=== PATIENT | female | born 2000 | race Caucasian/White ===

== ENCOUNTER 2021-01-15 20:43 | Emergency (ER) | payer MEDICAID, SELFPAY ==
--- NOTE | ~2021-01-15 | CT_ITS ---
EXAMINATION: CT ABDOMEN AND PELVIS WITHOUT CONTRAST CLINICAL INFORMATION: Left pelvic and flank pain COMPARISON: 11/08/2018 TECHNIQUE: Multidetector volumetric imaging was performed from the superior aspect of the liver through the pubic symphysis. Sagittal and coronal reformatted images were obtained on the technologist's workstation. This CT examination was performed using dose optimization techniques as appropriate, variously including the following: *Automated exposure control *Adjustment of mA and/or kV according to patient size (this includes techniques or standardized protocols for targeted exams where dose is matched to indication/reason for exam; i.e. extremities or head) *Use of iterative reconstruction technique DLP: 669 mGy-cm FINDINGS: LUNG BASES: Clear LIVER, GALLBLADDER, AND BILIARY TREE: The liver is normal in size, shape, and attenuation. No focal hepatic lesion or biliary ductal dilatation is present. Gallbladder unremarkable. PANCREAS: Unremarkable. SPLEEN: Unremarkable. ADRENAL GLANDS: Unremarkable. KIDNEYS AND URETERS: The kidneys are normal in size, shape, and attenuation. No hydronephrosis, hydroureter, or calculi seen. No perinephric stranding. BLADDER: Unremarkable. GASTROINTESTINAL TRACT: Scattered colonic diverticula. No evidence of diverticulitis. Normal appendix. Stomach and small bowel unremarkable. ABDOMINAL WALL: No significant hernia is appreciated. LYMPH NODES: Normal. VASCULAR: Unremarkable. PELVIC VISCERA: Uterus and adnexa unremarkable. OSSEOUS STRUCTURES: No acute or suspicious osseous abnormalities. CT/CT abdomen pelvis wo con IMPRESSION: No acute findings within the abdomen or pelvis to explain the patient's symptomatology. Scattered colonic diverticula without evidence of diverticulitis.
[2021-01-15 20:58] VITALS: BP 131/75; PULSE 100; RESP 18; TEMP 36.4; O2SAT 99; BMI 35.4
--- NOTE | 2021-01-15 22:23 | ED_ITS ---
HPI - General Adult General Chief complaint: General Medical Stated complaint: left sided pain Time Seen by Provider: 01/15/21 22:20 Source: patient Mode of arrival: ambulatory Limitations: no limitations History of Present Illness HPI narrative: 20 y/o female presenting with intermittent left sided flank pain and pelvic pain for the last 4 days. She states the pain starts in in between her left lower ribs and radiates toward her LLQ and left pelvic area. She currently had none. She reports increased urinary frequency and urgency but no dysuria or hematuria. She has no N/V/D, fever or chills. No vaginal bleeding or discharge. LMP 12/21. MD complaint: left flank and pelvic pain Onset (ago): day(s) (4) Location: abdomen Radiation: flank Severity: mild Severity scale (1-10): 4 Pain Consistency: intermittent Relieving factors: none Exacerbating factors: none Associated symptoms: denies other symptoms Treatments prior to arrival: none Related Data Previous Rx's Medication Instructions Recorded cefuroxime axetil 250 mg PO BID #6 tab 01/16/21 Allergies Allergy/AdvReac Type Severity Reaction Status Date / Time No Known Allergies Allergy Unverified 04/14/20 19:22 [No Known Allergies*] Review of Systems Review of Systems: Constitutional: No Fever, No Chills ENT/Mouth: No sore throat, No Rhinorrhea, No Swallowing Difficulty Cardiovascular: No Chest Pain, No SOB, No Orthopnea, No Edema Respiratory: No Cough, No Sputum, No Wheezing, No dyspnea Gastrointestinal: No Nausea, No Vomiting, No Diarrhea, + abdominal Pain, No Hematochezia, No Melena Genitourinary: No Dysuria, + Urinary Frequency, No Hematuria Musculoskeletal: No joint pain, No Myalgias Skin: No Skin Lesions, No rash Neuro: No Weakness, No Numbness, No Dizziness, No Headache Psych: No Anxiety/Panic, No Depression Heme/Lymph: No Bruising, No Lymphadenopathy Endocrine: No Polyuria, No Polydipsia PMFSH Past Medical History Attestation statement: The following information was validated with the patient. Medical History Asthma No acute medical problems Surgical History (Updated 01/15/21 @ 21:03 by Ruth Malone) No history of previous surgery Social History Social History Advance Directives: No Advance Directives Information Provided: No Patient : Yes Physical Exam Vital Signs: Vital Signs: Last Vital Signs Temp 97.6 F 01/15/21 20:58 Pulse 100 01/15/21 20:58 Resp 18 01/15/21 20:58 BP 131/75 01/15/21 20:58 Pulse Ox 99 01/15/21 20:58 Body Mass Index 35.4 Appearance: Alert. Oriented X3. No acute distress. Eyes: Pupils equal, round and reactive to light. ENT: Pharynx normal. Neck: Normal inspection. Neck supple. CVS: Normal heart rate and rhythm. Pulses normal. Respiratory: No respiratory distress. Breath sounds normal. Abdomen: Soft and with mild LLQ tenderness to deep palpation. +BS x4 Skin: Skin warm and dry. Normal skin color. Normal skin turgor. No rashes. Extremities: No lower extremity edema. Neuro: Oriented X 3. No motor deficit. No sensory deficit. Course Course Course Narrative: 20 y/o female presenting with left flank and pelvic pain x4 days along with urgency and frequency. No concern for STI's. Pelvic exam deferred. Will get labs and urine for further assessment. Reevaluation(s) Reevaluation #1: Labs unremarkable. UA weakly positive for infection. CT scan ordered. Reevaluation #2: CT showed no acute abnormalities to cause patient's pain. Given her urinary symptoms, will treat her for UTI. No fever, N/V or leukocytosis. She is stable for d/c with outpatient follow up. Medical Decision Making Lab Data Result diagrams: 01/15/21 22:35 01/15/21 22:35 Labs: Lab Results 01/15/21 01/15/21 01/15/21 Range/Units 22:35 22:35 22:35 WBC 10.7 (4.8-10.8) X10*3/uL RBC 3.84 L (4.20-5.50) X10*6/uL Hgb 12.3 (12.0-16.0) g/dl Hct 36.2 L (37-47) % MCV 94.3 (80-98) fL MCH 32.0 (27.0-33.0) pg MCHC 34.0 (31.0-35.0) g/dl RDW 12.0 (11.0-16.0) % Plt Count 214 (160-400) X10*3/uL MPV 11.5 (9.4-12.3) fL Immature Gran % (Auto) 0.3 (0.0-0.4) % Neut % (Auto) 51.6 (45-73) % Lymph % (Auto) 39.4 (20-40) % [place] % (Auto) 7.1 (2-11) % Eos % (Auto) 1.4 (0-4) % Baso % (Auto) 0.2 (0-2) % Lymph # (Auto) 4.2 (1.2-4.9) X10*3/uL [place] # (Auto) 0.8 (0.1-1.2) X10*3/uL Eos # (Auto) 0.2 (0.0-0.4) X10*3/uL Baso # (Auto) 0.0 (0.0-0.2) X10*3/uL Abs Immat Gran (auto) 0.03 (0.00-0.03) X10*3/uL Absolute Neuts (auto) 5.5 (2.0-8.3) X10*3/uL Absolute Nucleated RBC 0.000 (0.0-0.012) X10*3/uL Nucleated RBC % (auto) 0.0 (0.0-0.2) /100WBC Sodium 140 (135-145) mmol/L Potassium 4.0 (3.3-5.1) mmol/L Chloride 105 (96-108) mmol/L Carbon Dioxide 26 (22-29) mmol/L Anion Gap 13 (12-20) BUN 15 (9-16) mg/dL Creatinine 0.68 (0.5-1.4) mg/dL Estim Creat Clear Calc 139.9 Estimated GFR > 60 Random Glucose 87 (60-115) mg/dL Calcium 9.8 (8.4-10.2) mg/dL Total Bilirubin 0.5 (0.0-1.0) mg/dL Direct Bilirubin 0.2 (0.0-0.5) mg/dL AST 14 (5-31) U/L ALT 11 (0-31) U/L Alkaline Phosphatase 93 (39-117) U/L Total Protein 7.0 (6.5-8.0) g/dL Albumin 4.3 (3.5-5.0) g/dL Beta HCG, Quant < 2 mIU/mL Urine Color YELLOW Urine Appearance CLEAR Urine pH 6.0 (5.0-8.0) Ur Specific Crawford 1.025 (1.005-1.025) Urine Protein NEG (NEG-TRACE) MG/DL Urine Glucose (UA) NEG (NEG) MG/DL Urine Ketones NEG (NEG) MG/DL Urine Blood NEG (NEG) Urine Nitrite NEG (NEG) Ur Leukocyte Esterase TRACE H (NEG) Urine RBC 0 (0) /HPF Urine WBC 1-4 (0-4) /HPF Ur Squamous Epith Cells 1+ /LPF Calcium Oxalate Crystal 1+ /LPF Urine Bacteria 1+ /LPF Urine Test (NEGATIVE) 01/15/21 Range/Units 22:35 WBC (4.8-10.8) X10*3/uL RBC (4.20-5.50) X10*6/uL Hgb (12.0-16.0) g/dl Hct (37-47) % MCV (80-98) fL MCH (27.0-33.0) pg MCHC (31.0-35.0) g/dl RDW (11.0-16.0) % Plt Count (160-400) X10*3/uL MPV (9.4-12.3) fL Immature Gran % (Auto) (0.0-0.4) % Neut % (Auto) (45-73) % Lymph % (Auto) (20-40) % [place] % (Auto) (2-11) % Eos % (Auto) (0-4) % Baso % (Auto) (0-2) % Lymph # (Auto) (1.2-4.9) X10*3/uL [place] # (Auto) (0.1-1.2) X10*3/uL Eos # (Auto) (0.0-0.4) X10*3/uL Baso # (Auto) (0.0-0.2) X10*3/uL Abs Immat Gran (auto) (0.00-0.03) X10*3/uL Absolute Neuts (auto) (2.0-8.3) X10*3/uL Absolute Nucleated RBC (0.0-0.012) X10*3/uL Nucleated RBC % (auto) (0.0-0.2) /100WBC Sodium (135-145) mmol/L Potassium (3.3-5.1) mmol/L Chloride (96-108) mmol/L Carbon Dioxide (22-29) mmol/L Anion Gap (12-20) BUN (9-16) mg/dL Creatinine (0.5-1.4) mg/dL Estim Creat Clear Calc Estimated GFR Random Glucose (60-115) mg/dL Calcium (8.4-10.2) mg/dL Total Bilirubin (0.0-1.0) mg/dL Direct Bilirubin (0.0-0.5) mg/dL AST (5-31) U/L ALT (0-31) U/L Alkaline Phosphatase (39-117) U/L Total Protein (6.5-8.0) g/dL Albumin (3.5-5.0) g/dL Beta HCG, Quant mIU/mL Urine Color Urine Appearance Urine pH (5.0-8.0) Ur Specific Crawford (1.005-1.025) Urine Protein (NEG-TRACE) MG/DL Urine Glucose (UA) (NEG) MG/DL Urine Ketones (NEG) MG/DL Urine Blood (NEG) Urine Nitrite (NEG) Ur Leukocyte Esterase (NEG) Urine RBC (0) /HPF Urine WBC (0-4) /HPF Ur Squamous Epith Cells /LPF Calcium Oxalate Crystal /LPF Urine Bacteria /LPF Urine Test NEGATIVE (NEGATIVE) Critical Care Time Critical Care Time Critical Care Time: No Discharge Plan Discharge Clinical Impression: UTI (urinary tract infection) Qualifiers: Urinary tract infection type: acute cystitis Hematuria presence: without hematuria Qualified Code(s): N30.00 - Acute cystitis without hematuria Patient Disposition: Home, Self-Care Instructions: Urinary Tract Infection in Women (ED) Additional Instructions: Your lab workup was normal. Your test was negative. Your CT scan was negative. Your urine test showed signs of a possible early infection in your bladder. Recommend taking the prescribed antibiotic for 3 days. Follow up with your doctor this week. No sexual activity until all of your symptoms are resolved. If you have any worsening symptoms come back to the ER for further evaluation. Bergman an?lisis de laboratorio fue normal. Tu prueba de embarazo fue negativa. Bergman tomograf?a computarizada fue negativa. Bergman an?lisis de orina mostr? signos de mic posible infecci?n temprana en bergman vejiga. Recomiende monica el antibi?toan recetado remedios 3 d?as. Manav un seguimiento con bergman m?dico esta semana. No tenga actividad sexual hasta que se hayan resuelto todos kingsley s?ntomas. Si tiene alg?n s?ntoma que empeora, regrese a la hedy de emergencias para mic evaluaci?n adicional. Prescriptions: New cefuroxime axetil 250 mg tablet 250 mg PO BID Qty: 6 RF: 0
[2021-01-15 22:45] LABS: MANUAL DIFF FLAG NO
[2021-01-15 22:46] LABS: Basophils Percent Auto 0.2 % (0-2); Eosinophils Absolute Auto 0.2 X10*3/uL (0.0-0.4); Eosinophils Percent Auto 1.4 % (0-4); Hematocrit 36.2 % (37-47); Hemoglobin 12.3 g/dl (12.0-16.0); Imm Gran Abs Auto 0.03 X10*3/uL (0.00-0.03); Imm Gran Pct Auto 0.3 % (0.0-0.4); Lymphocytes Absolute Auto 4.2 X10*3/uL (1.2-4.9); Lymphocytes Percent Auto 39.4 % (20-40); Mean Corpuscular Volume 94.3 fL (80-98); Mean Platelet Volume 11.5 fL (9.4-12.3); Monocytes Absolute Auto 0.8 X10*3/uL (0.1-1.2); Monocytes Percent Auto 7.1 % (2-11); Neutrophils Absolute Auto 5.5 X10*3/uL (2.0-8.3); Neutrophils Percent Auto 51.6 % (45-73); Platelet Count 214 X10*3/uL (160-400); Red Blood Count 3.84 X10*6/uL (4.20-5.50); White Blood Count 10.7 X10*3/uL (4.8-10.8)
[2021-01-15 22:48] LABS: Appearance Urine CLEAR; Color Urine YELLOW; Glucose Urine UA NEG (NEG); Leukocyte Esterase Urine TRACE (NEG); Nitrite Urine NEG (NEG); Specific Gravity - Urine 1.025 (1.005-1.025); UACC Culture Trigger YES; Urine Blood NEG (NEG); Urine Ketones NEG (NEG); Urine Protein NEG (NEG-TRACE)
[2021-01-15 22:54] LABS: Bacteria Urine 1+ /LPF; Calcium Oxalate Crystals Urine 1+ /LPF; RBC Urine 0 /HPF (0); Squamous Epithelial Cell Urine 1+ /LPF
[2021-01-15 22:55] LABS: UPreg QC Valid YES; Urine Pregnancy NEGATIVE (NEGATIVE)
[2021-01-15 23:12] LABS: Alanine Aminotransferase 11 U/L (0-31); Albumin Level 4.3 g/dL (3.5-5.0); Alkaline Phosphatase 93 U/L (39-117); Anion Gap 13 (12-20); Aspartate Amino Transferase 14 U/L (5-31); Bilirubin Direct 0.2 mg/dL (0.0-0.5); Bilirubin Total 0.5 mg/dL (0.0-1.0); Blood Urea Nitrogen 15 mg/dL (9-16); Calcium 9.8 mg/dL (8.4-10.2); Carbon Dioxide 26 mmol/L (22-29); Chloride 105 mmol/L (96-108); Creatinine Clr Calc Pharmacy 139.9; Estimated Glomerular Filt Rate > 60; Glucose Random 87 mg/dL (60-115); Sodium 140 mmol/L (135-145)
[2021-01-15 23:21] LABS: HCG Quantitative < 2 mIU/mL
[2021-01-16] MEDS: cephALEXin 500 MG CAPSULE PO (01:05)
== END 2021-01-16 01:10 | disposition home or self-care (01) ==
PROVIDERS: Physician Assistant; Emergency Provider Student in an Organized Health Care Education/Training Program
DX: N30.00 Acute cystitis without hematuria (principal); J45.909 Unspecified asthma, uncomplicated
CPT/HCPCS: 36415; 74176; 80048; 80076; 81001; 81003; 81025; 84702; 85025; 87086; 99284

== ENCOUNTER 2021-04-15 18:18 | Emergency (ER) | payer MEDICAID, SELFPAY ==
[2021-04-15 19:14] VITALS: BP 133/75; PULSE 102; RESP 16; TEMP 36.2; O2SAT 98; BMI 33.8
== END 2021-04-15 21:18 | disposition left against medical advice (07) ==
PROVIDERS: Emergency Provider Emergency Medicine
DX: O26.91 Pregnancy related conditions, unspecified, first trimester (principal); Z3A.01 Less than 8 weeks gestation of pregnancy
CPT/HCPCS: 99282; 99283

== ENCOUNTER 2021-04-19 08:53 | Outpatient (REF) | payer MEDICAID, SELFPAY ==
[2021-04-19 11:42] LABS: HCG Quantitative 10922 mIU/mL
== END 2021-04-19 08:54 | disposition home or self-care (01) ==
LOC: HO.LAB 08:53
PROVIDERS: Visit Provider Advanced Practice Midwife
DX: O26.891 Other specified pregnancy related conditions, first trimester (principal); R10.2 Pelvic and perineal pain; O99.211 Obesity complicating pregnancy, first trimester; Z3A.00 Weeks of gestation of pregnancy not specified
CPT/HCPCS: 36415; 81025; 84702; 99212

== ENCOUNTER 2021-04-28 10:33 | Outpatient (REF) | payer MEDICAID, SELFPAY ==
--- NOTE | ~2021-04-28 | US_ITS ---
EXAMINATION: US OBSTETRICAL ULTRASOUND CLINICAL INFORMATION: Early . COMPARISON: None. LMP: 03/17/2021. Gestational age by maternal dates is 8 weeks 3 days. Estimated date of delivery by maternal dates is 12/05/2021. TECHNIQUE: Ultrasound of the maternal pelvis is performed using transabdominal transducer. M-mode Doppler is also performed. FINDINGS: There is a single intrauterine gestational sac with visible yolk sac, embryo/fetus, and cardiac activity. There is no significant subchorionic hemorrhage or hematoma. HR: 156 beats per minute. CRL (crown rump length): 1.4 cm (7 weeks 6 days +/- 4 days). FELISHA (estimated date of delivery): 12/09/2021 +/- 4 days. MATERNAL ADNEXA: The right maternal ovary measures 2.4 x 1.4 x 1.6 cm. The left maternal ovary measures 3.4 x 1.8 x 2.1 cm. Incidental 0.9 cm follicle noted in the ovary. There is no maternal adnexal mass. No maternal pelvic ascites. US/US OB <= 14 weeks fetus IMPRESSION: 1. Single intrauterine gestation with ultrasound gestational age of 7 weeks 6 days +/- 4 days. 2. Estimated date of delivery is 12/09/2021 +/- 4 days. 3. No maternal adnexal mass or pelvic ascites.
== END 2021-04-28 10:34 | disposition home or self-care (01) ==
LOC: HO.US 10:33
PROVIDERS: Visit Provider Advanced Practice Midwife
DX: O26.891 Other specified pregnancy related conditions, first trimester (principal); R10.0 Acute abdomen; Z3A.01 Less than 8 weeks gestation of pregnancy
CPT/HCPCS: 76801

== ENCOUNTER → 2021-05-17 14:04 | Outpatient (BNVA) | payer MEDICAID, SELFPAY | PROVIDERS: Visit Provider Advanced Practice Midwife | DX: Z34.01 Encounter for supervision of normal first pregnancy, first trimester (principal); Z3A.10 10 weeks gestation of pregnancy | CPT/HCPCS: 99212 ==

== ENCOUNTER 2021-05-22 14:32 | Outpatient (REF) | payer MEDICAID, SELFPAY ==
[2021-05-23 02:44] LABS: CT PCR NOT DETECTED (Not Detect.); NG PCR NOT DETECTED (Not Detect.)
[2021-05-23 09:25] LABS: BV Int Neg Control Negative (Negative); BV Int Pos Control Positive (Positive)
== END 2021-05-22 14:33 | disposition home or self-care (01) ==
LOC: HO.LAB 14:32
PROVIDERS: Visit Provider Advanced Practice Midwife
DX: O99.211 Obesity complicating pregnancy, first trimester (principal); E66.9 Obesity, unspecified; Z3A.11 11 weeks gestation of pregnancy
CPT/HCPCS: 87480; 87491; 87510; 87591; 87660; 88142; 99212

== ENCOUNTER 2021-05-26 09:51 | Outpatient (REF) | payer MEDICAID, SELFPAY ==
--- NOTE | ~2021-05-26 | US_ITS ---
EXAMINATION: OBSTETRICAL ULTRASOUND, FIRST TRIMESTER HISTORY: 20-year-old at 12.3 weeks of gestation NT screening COMPARISON: 04/28/2021 TECHNIQUE: Real time transabdominal imaging with color and M-mode Doppler. FINDINGS: A single, live IUP CRL of 53.3 mm c/w 12.0wks is noted. Heart Rate: 136 beats per minute. Normal yolk sac seen. NT was 1.4.mm. NB Present The embryo appears sonographically wnl for this GA. Both maternal ovaries are seen and appear normal. GESTATIONAL AGE: 1. Established GA: 12.3 wks 2. GA from [facility]: 12.0 wks ESTIMATED DATE OF DELIVERY: 1. Established FELISHA: 12/05/2021 2. FELISHA from [facility]: 12/08/2021 US/US OB 1T nuc measure IMPRESSION: 1. A single live IUP 2. Size equals dates 3. NT of 1. 4 mm MFM Consultation: I reviewed the ultrasound findings along with significance of NT measurement. The NT of less than 3mm is generally reassuring. However, the sensitivity for T21 detection is only 60%. I reviewed the availability of serum aneuploidy screening which includes cell-free DNA and placental protein based tests. I discussed the sensitivity, false-positive rate, and other limitations associated with each test. I also reviewed the availability of invasive diagnostic tests that are associated small but definite risk of miscarriage. We also reviewed the differences between screening tests and diagnostic tests. After our discussion, she opted for the First trimester screening that is based on cell-free DNA or non-invasive testing (NIPT). The result will be faxed to your office in approximately 7 days. A follow up at 18 weeks for survey has been scheduled. Thank you very much for this referral. Total time 30 minutes. The time spent was devoted to counseling the patient about the disease and diagnosis, coordinating care including reviewing her records, pertinent lab data and studies, as well as discussing diagnostic evaluation and workup, plan therapeutic interventions and future disposition of care. This includes any additional research needed to obtain further information in formulating the plan of care of this patient. This note was generated with a voice recognition program. Please excuse any errors which may have been overlooked during my review of this note. Sometimes these errors may affect the content or meaning of a given sentence.
[2021-05-26 11:17] LABS: Hematocrit 33.9 % (37-47); Hemoglobin 11.5 g/dl (12.0-16.0); Mean Corpuscular HGB Conc 33.9 g/dl (31.0-35.0); Mean Corpuscular Hemoglobin 31.7 pg (27.0-33.0); Mean Corpuscular Volume 93.4 fL (80-98); Mean Platelet Volume 11.5 fL (9.4-12.3); Platelet Count 158 X10*3/uL (160-400); Red Blood Count 3.63 X10*6/uL (4.20-5.50); White Blood Count 9.4 X10*3/uL (4.8-10.8)
[2021-05-26 12:04] LABS: HBsAGNum1 0.17 S/CO (0.00-0.99); HIV AB/AG Nonreactive (Nonreactive); HIV Num 1 0.07 S/CO (0.00-0.99); Hepatitis B Surface Antigen Negative (Negative); ~HepC Num1 0.06 S/CO (0.00-0.79); ~Hepatitis C Antibody Nonreactive (Nonreactive)
[2021-05-26 12:05] LABS: Glucose 1 Hour PP 50gm Dose 132 mg/dL (60-140)
[2021-05-26 12:09] LABS: Syphilis Screen Nonreactive (Nonreactive)
[2021-05-26 12:15] LABS: Alanine Aminotransferase 22 U/L (0-31); Aspartate Amino Transferase 16 U/L (5-31); Blood Urea Nitrogen 4 mg/dL (9-16); Estimated Glomerular Filt Rate > 60; Uric Acid 3.3 mg/dL (2.4-5.7)
[2021-05-26 13:07] LABS: Creatinine Urine 228.47 mg/dL; Protein/Creatinine Ratio, Ur 0.06 (<0.2); Total Protein Urine Random 13 mg/dL (<12)
[2021-05-26 13:09] LABS: Amphetamine Screen Urine Not Detected (Not Detect); Barbiturates, Urine Not Detected (Not Detect); Benzodiazepines Screen Urine Not Detected (Not Detect); Cannabinoid Screen Urine Not Detected (Not Detect); Cocaine Screen Urine Not Detected (Not Detect); Fentanyl, urine Not Detected (Not Detect); Opiate Screen Urine Not Detected (Not Detect); Phencyclidine Screen Urine Not Detected (Not Detect)
[2021-05-27 08:46] LABS: Rubella IgG Antibody 2.17 Index
== END 2021-05-26 09:52 | disposition home or self-care (01) ==
LOC: HO.US 09:51
PROVIDERS: Visit Provider Advanced Practice Midwife
DX: Z32.01 Encounter for pregnancy test, result positive (principal); Z87.59 Personal history of other complications of pregnancy, childbirth and the puerperium
CPT/HCPCS: 76813; 80307; 82565; 84156; 84450; 84460; 84520; 84550; 85027; 86762; 86780; 86787; 86803; 86850; 86900; 86901; 87086; 87340; 87389

== ENCOUNTER → 2021-06-19 14:31 | Outpatient (BNVA) | payer MEDICAID, SELFPAY | PROVIDERS: Visit Provider Advanced Practice Midwife | DX: O09.892 Supervision of other high risk pregnancies, second trimester (principal); Z87.59 Personal history of other complications of pregnancy, childbirth and the puerperium; Z36.3 Encounter for antenatal screening for malformations; Z3A.15 15 weeks gestation of pregnancy | CPT/HCPCS: 99212 ==

== ENCOUNTER 2021-07-28 08:40 | Outpatient (REF) | payer MEDICAID, SELFPAY ==
--- NOTE | ~2021-07-28 | US_ITS ---
EXAMINATION: US OBSTETRICAL CLINICAL INFORMATION: A 20-year-old at 21.3 weeks of gestation Screening for anomaly COMPARISON: 05/26/2021 TECHNIQUE: Real-time transabdominal ultrasound was performed using C1-5 megahertz transducer. FINDINGS: A single, active, fetus is seen in vertex presentation. The placenta is anterior without previa, and the amniotic fluid volume is wnl. MEASUREMENTS: 1. Biparietal Diameter: 4.9 cm; 20.6 wks 2. Occipital Frontal Diameter: 6.8 cm 3. Head Circumference: 19.3 cm; 21.4 wks 4. Abdominal Circumference: 16.3 cm; 21.3 wks 5. Femur Length: 3.6 cm; 21.2 wks 6. Humerus Length: 3.6 cm; 22.3 wks 7. Tibia Length: 3.2 cm; 21.6 wks 8. Ulna Length: 3.2 cm; 22.1 wks 9. Lateral ventricle: 0.64 cm 10. Cerebellum: 2.0 cm; 20.5 wks 11. Cisterna Magna: 0.32 cm 12. Nuchal Fold: 3.9 mm 13. Heart Rate: 155 beats per minute Rt ovary: normal Lt ovary: normal Cervical length 4.4 cm on T/A. GESTATIONAL AGE: 1. Established GA: 21.3 wks 2. GA from [facility]: 21.2 wks ESTIMATED DATE OF DELIVERY: 1. Established FELISHA: 12/05/2021 2. FELISHA from [facility]: 12/06/2021 ANATOMY: The visualized anatomy includes but not limited to: 1. Cranium: Normal 2. Intracranial anatomy: cavum septum pellucidi, lateral ventricles, choroid plexus, cerebellum, posterior fossa, third and fourth ventricles. 3. face: orbits, lip/palate, profile, nasal bone 4. Heart: four-chamber view of the heart, ventricular septum, foramen ovale, pulmonary vein, left and right outflow tracts, three-vessel view, 3 vessel trachea view, aortic and ductal arches, situs.. 5. Diaphragm: Normal 6. Abdominal wall: Normal 7. Cord Insertion: Normal 8. Spine: Cervical, thoracic, lumbar, sacral. 9. Stomach: Normal size and shape 10. Right Kidney: Normal 11. Left Kidney: Normal 12. 3 vessel cord: Normal 13. Upper extremity: Open hands, fifth digit. 14. Lower extremity: Tibia, fibula, bilateral feet. 15. Bladder: Normal 16. Genitalia: Male, patient aware US/US OB /maternal detail IMPRESSION: 1. Single, living, intrauterine with appropriate biometry. 2. Normal survey DISCUSSION: I reviewed today's ultrasound findings. We discussed the limitations of ultrasound in diagnosing aneuploidy and other congenital abnormalities. I reviewed the differences between screening test and diagnostic test. Amniocentesis was discussed and declined. She was informed that the baseline incidence of congenital abnormalities is approximately 3-5%. Not all these conditions are diagnosable in utero. RECOMMENDATIONS: 1. Follow-up when necessary Thank you for allowing me to participate in her care. Total time 20 minutes. The time spent was devoted to counseling the patient about the disease and diagnosis, coordinating care including reviewing her records, pertinent lab data and studies, as well as discussing diagnostic evaluation and workup, plan therapeutic interventions and future disposition of care. This includes any additional research needed to obtain further information in formulating the plan of care of this patient. This note was generated with a voice recognition program. Please excuse any errors which may have been overlooked during my review of this note. Sometimes these errors may affect the content or meaning of a given sentence.
== END 2021-07-28 08:41 | disposition home or self-care (01) ==
LOC: HO.US 08:40
PROVIDERS: PCP General Practice; Visit Provider Advanced Practice Midwife
DX: O35.9XX0 Maternal care for (suspected) fetal abnormality and damage, unspecified, not applicable or unspecified (principal); Z87.59 Personal history of other complications of pregnancy, childbirth and the puerperium
CPT/HCPCS: 76811

== ENCOUNTER → 2021-08-09 11:11 | Outpatient (BNVA) | payer MEDICAID, SELFPAY | PROVIDERS: PCP General Practice; Visit Provider Obstetrics & Gynecology | DX: O99.512 Diseases of the respiratory system complicating pregnancy, second trimester (principal); J45.909 Unspecified asthma, uncomplicated; O99.342 Other mental disorders complicating pregnancy, second trimester; F32.A Depression, unspecified; Z3A.22 22 weeks gestation of pregnancy; Z23 Encounter for immunization | CPT/HCPCS: 99212 ==

== ENCOUNTER → 2021-09-13 09:40 | Outpatient (BNVA) | payer MEDICAID, SELFPAY | PROVIDERS: PCP General Practice; Visit Provider Advanced Practice Midwife | DX: Z34.02 Encounter for supervision of normal first pregnancy, second trimester (principal); Z3A.27 27 weeks gestation of pregnancy | CPT/HCPCS: 81003; 99212 ==

== ENCOUNTER 2021-09-20 09:36 | Outpatient (REF) | payer MEDICAID, SELFPAY ==
[2021-09-20 11:43] LABS: Hematocrit 32.5 % (37.0-47.0); Hemoglobin 10.7 g/dl (12.0-16.0); Mean Corpuscular HGB Conc 32.9 g/dl (31.0-35.0); Mean Corpuscular Hemoglobin 31.3 pg (27.0-33.0); Mean Platelet Volume 12.1 fL (9.4-12.3); Platelet Count 158 X10*3/uL (160-400); Red Blood Count 3.42 X10*6/uL (4.20-5.50); Red Cell Distribution Width 12.5 % (11.0-16.0); White Blood Count 8.8 X10*3/uL (4.8-10.8)
[2021-09-20 12:13] LABS: Glucose 1 Hour PP 50gm Dose 169 mg/dL (60-140)
[2021-09-20 12:29] LABS: Syphilis Screen Nonreactive (Nonreactive)
== END 2021-09-20 09:37 | disposition home or self-care (01) ==
LOC: HO.LAB 09:36
PROVIDERS: Visit Provider Advanced Practice Midwife
DX: Z34.90 Encounter for supervision of normal pregnancy, unspecified, unspecified trimester (principal); Z20.2 Contact with and (suspected) exposure to infections with a predominantly sexual mode of transmission
CPT/HCPCS: 36415; 85027; 86780

== ENCOUNTER 2021-09-25 07:57 | Outpatient (REF) | payer MEDICAID, SELFPAY ==
[2021-09-25 09:15] LABS: Glucose Fasting 100 mg/dL (60-99)
[2021-09-25 10:30] LABS: Glucose 1 Hour 202 mg/dL
[2021-09-25 11:37] LABS: Glucose 2 Hour 189 mg/dL
[2021-09-25 12:53] LABS: Glucose 3 Hour 137 mg/dL
== END 2021-09-25 07:58 | disposition home or self-care (01) ==
LOC: HO.LAB 07:57
PROVIDERS: PCP General Practice; Visit Provider Advanced Practice Midwife
DX: O99.810 Abnormal glucose complicating pregnancy (principal)
CPT/HCPCS: 36415; 82951

== ENCOUNTER → 2021-09-26 13:59 | Outpatient (BNVA) | payer MEDICAID, SELFPAY | PROVIDERS: PCP General Practice; Visit Provider Advanced Practice Midwife | DX: O24.410 Gestational diabetes mellitus in pregnancy, diet controlled (principal); Z3A.29 29 weeks gestation of pregnancy | CPT/HCPCS: 99211 ==

== ENCOUNTER → 2021-10-04 10:53 | Outpatient (BNVA) | payer MEDICAID, SELFPAY | PROVIDERS: PCP General Practice; Visit Provider Obstetrics & Gynecology | DX: O24.410 Gestational diabetes mellitus in pregnancy, diet controlled (principal); Z3A.30 30 weeks gestation of pregnancy | CPT/HCPCS: 99212 ==

== ENCOUNTER → 2021-10-12 09:47 | Outpatient (BNVA) | payer MEDICAID, SELFPAY | PROVIDERS: Visit Provider Advanced Practice Midwife | DX: O24.419 Gestational diabetes mellitus in pregnancy, unspecified control (principal); O99.810 Abnormal glucose complicating pregnancy; Z87.59 Personal history of other complications of pregnancy, childbirth and the puerperium | CPT/HCPCS: 81003; 99212 ==

== ENCOUNTER 2023-01-07 15:54 | Outpatient (REF) | payer MEDICAID, SELFPAY ==
--- NOTE | ~2023-01-07 | XR_ITS ---
EXAMINATION: XR HUMERUS, RIGHT CLINICAL INFORMATION: Pain at Nexplanon implant site. COMPARISON: None available. TECHNIQUE: AP and lateral views of the right humerus. The distal humerus is excluded on the internally rotated view. FINDINGS: The Nexplanon implant is noted in the posteromedial soft tissues of the distal right upper extremity. No soft tissue gas or focal swelling is noted. The bones and soft tissues are otherwise normal. No fracture. Imaged portions of the shoulder and elbow are unremarkable. XR/XR humerus RT IMPRESSION: The Nexplanon implant is noted in the distal right upper extremity, without adjacent soft tissue gas or significant swelling. Unremarkable right humerus.
== END 2023-01-07 15:55 | disposition home or self-care (01) ==
LOC: HO.HHCX 15:54
PROVIDERS: Visit Provider General Practice
DX: M79.601 Pain in right arm (principal)
CPT/HCPCS: 73060

== ENCOUNTER 2023-10-10 08:42 | Outpatient (REF) | payer MEDICAID, SELFPAY ==
--- NOTE | ~2023-10-10 | US_ITS ---
EXAMINATION: US DIAGNOSTIC ULTRASOUND BREAST, LEFT CLINICAL INFORMATION: 22-year-old female complaining of palpable abnormality left breast 2:00 axis. Patient states abnormality has been present for a long time . No additional issues. 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 Size measurements are similar. Apparently the patient is planning on having a breast reduction soon. COMPARISON: 04/16/2019 left breast ultrasound. TECHNIQUE: Ultrasound of the breast is performed with real-time byrne scale imaging and color Doppler. Attention given to the left breast 2:00 axis. FINDINGS: There is an oval subcutaneous mass at the 2:00 axis of the left breast, a CM from the nipple, measuring 2.0 x 2.1 x 1.4 cm. This is circumscribed, without posterior features. There are some cystic foci within with some specular echoes within the hypoechoic stroma. This has similar measurements when compared with the [facility] examination of 2020, when it was biopsied. 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 Results are discussed with the patient at time of visit using a general teller. US/US breast LT limited mamm only IMPRESSION: Palpable abnormality left breast 2:00 axis is a mixed echogenicity oval circumscribed mass measuring 2.0 x 2.1 x 1.4 cm. This was previously biopsied at [facility] in 2020 with similar size measurements. There are some cystic foci within, unknown if present previously. As per the patient, she intends to have a breast reduction in the near future, at which point this will be presumably resected. Regardless, clinical management recommended of this abnormality. ASSESSMENT: BI-RADS 2 - Benign Findings RECOMMENDATION: 1. Patient should be managed based on the clinical impression. Decision to proceed with repeat biopsy should be based on clinical grounds and degree of clinical concern.
== END 2023-10-10 08:43 | disposition home or self-care (01) ==
LOC: HO.MAMMO 08:42
PROVIDERS: PCP General Practice; Visit Provider General Practice
DX: N63.21 Unspecified lump in the left breast, upper outer quadrant (principal)
CPT/HCPCS: 76642

== ENCOUNTER → 2023-10-10 09:00 | Outpatient (BNV) | payer MEDICAID, SELFPAY | PROVIDERS: PCP General Practice; Visit Provider Radiology Diagnostic Radiology | DX: N63.21 Unspecified lump in the left breast, upper outer quadrant (principal) | CPT/HCPCS: 76642 ==

== ENCOUNTER 2024-02-10 14:19 | Outpatient (REF) | payer MEDICAID, SELFPAY ==
--- NOTE | ~2024-02-10 | XR_ITS ---
EXAMINATION: XR ABDOMEN KUB CLINICAL INDICATION: Kidney stone COMPARISON: CT abdomen pelvis 01/16/2020 TECHNIQUE: AP view of the abdomen. FINDINGS: The bowel gas pattern is normal with no evidence of ileus or obstruction. There is a 5 mm ovoid calcification seen overlying the region of the right ureteropelvic junction. A small 3 mm density seen overlying the region of the left lower pole. No additional unusual soft tissue calcifications are noted. The bones are unremarkable. XR/XR KUB IMPRESSION: 1. 5 mm calcification overlying the region of the right ureteropelvic junction. 2. 3 mm calcification overlying the region of the left lower pole. 3. Differential diagnosis would include nephrolithiasis as well as colonic contents. No stones were present on the prior CT scan.
== END 2024-02-10 14:20 | disposition home or self-care (01) ==
LOC: HO.HHCX 14:19
PROVIDERS: Visit Provider Student in an Organized Health Care Education/Training Program
DX: N23 Unspecified renal colic (principal)
CPT/HCPCS: 74018

== ENCOUNTER 2025-02-23 09:57 | Outpatient (REF) | payer MEDICAID, SELFPAY ==
--- OUTSIDE RECORDS SUMMARY | 2025-02-23 10:38 | XMS_ITS | Encounter Summary ---
Author Organization [facility] Address [address] [place] [address] [address] [place] [address] Care Team Providers Care Hand Spring Former Name Role Phone Taylor Child MD Primary Care Provider [phone] Reason for Referral * Consultation (Routine) - Canceled Specialty Diagnoses / Procedures Referred By Rashad qureshi Referred To Contact Plastic Surgery Diagnoses Large breasts Mass of left breast, unspecified quadrant Neck pain Taylor Child MD [address] [place] [address] Phone: tel: fax: [facility] [address] [place] [address] Drive [address] [place], [place] Phone: tel: fax: Referral ID Status Reason Start Date Expiration Date Visits Requested Visits Authorized [id number] Canceled Specialty Services Required 12/20/2023 12/19/2024 1 1 Encounter Details Date Type Department Care Team (Late st Contact Info) Description 12/20/2023 Orders Only [facility] [address] [place], [place] [phone] Taylor Child MD [address], [place] [phone] Large breasts (Primary Dx); Mass of left breast, unspecified quadrant; Neck pain Social History Tobacco Use Types Packs/Day Years Used Date Smoking Tobacco: Never Smokeless Tobacco: Never Alcohol Use Standard Drinks/Week Comments Never 0 (1 standard drink = 0.6 oz pur e alcohol) Housing Stability Answer Date Recorded What is your housing situation today? I have cain fitzgerald 09/03/[address] you li ve. Do you have problems with any of the following? None of the above;Pests such as bugs, ants, or mice 09/03/2023 Food Insecurity Answer Date Recorded Within the past 12 months, y ou worried that your food would run out before you got money to buy more: Sometimes True 2023 Within the past 12 months,th e food you bought just didn't last and you didn't have enough money to get more: Sometimes True 09/03/2023 Transportation Answer Date Recorded In the past 12 months, has l ack of transportation kept you from medical appts, meetings, work or from getting things needed for daily living? No 05/27/2023 Utilities Answer Date Recorded In the past 12 months, has t he electric, gas, oil or water company threatened to shut off services in your home? Yes 05/05/2023 Comments No Sex and Gender Information Value Date Recorded Sex Assigned at Female 05/28/2022 10:30 AM EDT Legal Sex Female 10:30 AM EDT Gender Identity Female 05/28/2022 10:30 AM EDT Sexual Orientation Straight 05/28/2022 10 :30 AM EDT documented as of this encounter Plan of Treatment Scheduled Referrals Name Type Priority Associated Diagnoses Orde r Schedule Referral to Plastic Surgery Outpatient Referral Routine Large breasts Mass of left breast, unspecified quadrant Neck pain Expected: 12/20/2023 (Approximate), Expires: 12/19/2024 documented as of this encounter Visit Diagnoses Diagnosis Large breasts- Primary Hypertrophy of breast Mass of left breast, unspecified quadrant Neck pain Cervicalgia documented in this encounter Care Teams Hand Spring Former Relationship Specialty Start Date End Date Taylor Child MD [address] [place] [address] PCP - General Family Medicine 04/12/20 documented as of this encounter
--- OUTSIDE RECORDS SUMMARY | 2025-02-23 10:38 | XMS_ITS | Clinical Summary ---
Author Organization [facility] ity Address [address] [place] [address] Care Team Providers Care Financial Reserve Clerk Name Role Phone Unavailable Primary Care Provider Unavailabl e Social History Tobacco Use Types Packs/Day Years Used Date Smoking Tobacco: Never Assessed Comments Unknown Sex and Gender Information Value Date Recorded Sex Assigned at Not on file Legal Sex Female 2:54 AM EST Gender Identity Not on file Sexual Orientation Not on file Plan of Treatment Health Maintenance Due Date Last Done Comments HPV Vaccines (1 - 3-dose series) 10/26/2014 DTaP,Tdap,and Td Vaccines (1 - Tdap) 10/26/2018 Hepatitis B Vaccines (1 of 3 - 19+ 3-dose series) 10/26/2018 Cervical Cancer Screening: P ap Smear 10/26/2020 COVID-19 Vaccine ( - 2023-2 5 season) 2024 Depression Screening 07/29/2024 Influenza Vaccine (#1) 2025 HIB Vaccines Aged Out No longer eligi ble based on patient's age to complete this topic Hepatitis A Vaccines Aged Out No long er eligible based on patient's age to complete this topic IPV Vaccines Aged Out No longer eligi ble based on patient's age to complete this topic MMR Vaccines Aged Out No longer eligi ble based on patient's age to complete this topic Meningococcal ACWY Vaccine Aged Out N o longer eligible based on patient's age to complete this topic Meningococcal B Vaccine Aged Out No l onger eligible based on patient's age to complete this topic Pneumococcal Vaccine: Pediat rics (0 to 5 Years) and At-Risk Patients (6 to 49 Years) Aged Out No longer eligible b ased on patient's age to complete this topic RSV Immunization Patients Un elmer 20 months Aged Out No longer eligible b ased on patient's age to complete this topic Varicella Vaccines Aged Out No longer eligible based on patient's age to complete this topic
[2025-02-23 11:42] LABS: Hemoglobin A1C 82.9572 umol/L; Total Hemoglobin (HGBA1C) 3026.7320 umol/L
[2025-02-23 11:53] LABS: Alanine Aminotransferase 11 U/L (0-31); Albumin Level 4.4 g/dL (3.5-5.0); Alkaline Phosphatase 84 U/L (39-117); Anion Gap 13 (12-20); Aspartate Amino Transferase 18 U/L (5-31); Blood Urea Nitrogen 11 mg/dL (9-16); Calcium 9.1 mg/dL (8.4-10.2); Carbon Dioxide 26 mmol/L (22-29); Chloride 108 mmol/L (96-108); Cholesterol 195 mg/dL (<200); Estimated Glomerular Filt Rate > 60; HDL Cholesterol 34 mg/dL (>40); Potassium 3.9 mmol/L (3.3-5.1); Sodium 143 mmol/L (135-145); Total Protein 7.1 g/dL (6.5-8.0); Triglycerides 132 mg/dL (<150)
== END 2025-02-23 09:58 | disposition home or self-care (01) ==
LOC: HO.HHCL 09:57
PROVIDERS: PCP General Practice; Visit Provider General Practice
DX: E66.811 Obesity, class 1 (principal); Z68.34 Body mass index [BMI] 34.0-34.9, adult; N92.6 Irregular menstruation, unspecified; Z87.59 Personal history of other complications of pregnancy, childbirth and the puerperium
CPT/HCPCS: 36415; 80053; 80061; 83036; 84443; 84702

== ENCOUNTER 2025-04-07 12:00 | Outpatient (REF) | payer MEDICAID, SELFPAY ==
--- OUTSIDE RECORDS SUMMARY | 2025-04-06 11:00 | XMS_ITS | Encounter Summary ---
Author Organization [facility] Address [address] [place] [address] 7 [place] [address] Care Team Providers Care Manager Commercial Sales Name Role Phone Taylor Child MD Primary Care Provider [phone] Reason for Referral * Imaging (Urgent) - Authorized Specialty Diagnoses / Procedures Referred By Contac t Referred To Contact Radiology Diagnoses Irregular menses History of ovarian cyst Procedures US Pelvis Transvaginal Micaela Wise CNM [address] [place] [address] Phone: tel: fax: [address] Phone: tel: fax: Referral ID Status Reason Start Date Expiration Date V isits Requested Visits Authorized [id number] Authorized 04/06/2025 04/06/2026 1 1 * Imaging (Urgent) - Authorized Specialty Diagnoses / Procedures Referred By Contac t Referred To Contact Radiology Diagnoses Irregular menses History of ovarian cyst Procedures Us Pelvis complete Micaela Wise CNM [address] [place] [address] Phone: tel: fax: [address] Phone: tel: fax: Referral ID Status Reason Start Date Expiration Date V isits Requested Visits Authorized [id number] Authorized 04/06/2025 04/06/2026 1 1 Reason for Visit * Reason Comments pap Pap smear Encounter Details Date Type Department Care Team (Latest Contact Info) Description 04/06/2025 11:00 AM EDT Procedure Visit [facility] [address], [place] [phone] Micaela Wise CNM [address] [place] [address] Irregular menses (Primary Dx); Cervical cancer screening; Vaginal itching; History of ovarian cyst; Urge incontinence Social History Tobacco Use Types Packs/Day Years Used Date Smoking Tobacco: Never Passive Smoke Exposure: Never Smokeless Tobacco: Never Alcohol Use Standard Drinks/Week Comments Never 0 (1 standard drink = 0.6 oz pur e alcohol) Depression Answer Date Recorded Patient Health Questionnaire-9 Score 0 02/08/2025 Patient Health Questionnaire-9 Score 0 02/08/2025 Last PHQ-9: Questionnaire Data Not on file 0 02/08/2025 Housing Stability Answer Date Recorded What is your housing situation today? I have cain fitzgerald 01/28/[address] you li ve. Do you have problems with any of the following? Pests such as bugs, ants, or mice 01/28/2025 Food Insecurity Answer Date Recorded Within the past 12 months, y ou worried that your food would run out before you got money to buy more: Never True 01/28/2025 Within the past 12 months,th e food you bought just didn't last and you didn't have enough money to get more: Never True 09/2024 Transportation Answer Date Recorded In the past 12 months, has l ack of transportation kept you from medical appts, meetings, work or from getting things needed for daily living? No 01/28/2025 Utilities Answer Date Recorded In the past 12 months, has t he electric, gas, oil or water company threatened to shut off services in your home? Yes 01/28/2025 Depression Answer Date Recorded Patient Health Questionnaire-2 Score 0 02/08/2025 Internet Access Answer Date Recorded Internet Access Q1 Yes 01/28/2025 Internet Access Q2 Not on file 01/28/2025 Comments No Intention Date Recorded No desire to become (finding) 0 04/06/2025 Sex and Gender Information Value Date Recorded Sex Assigned at Female 05/28/2022 10:30 AM EDT Legal Sex Female 10:30 AM EDT Gender Identity Female 05/28/2022 10:30 AM EDT Sexual Orientation Straight 05/28/2022 10 :30 AM EDT documented as of this encounter Last Filed Vital Signs Vital Sign Reading Time Taken Comments Blood Pressure 120/60 04/06/2025 11:21 AM EDT Pulse 90 04/06/2025 11:21 AM EDT Temperature 37.3 C (99.1 F) 04/06/2025 11:21 AM EDT Respiratory Rate 20 04/06/2025 11:21 AM EDT Oxygen Saturation - - Inhaled Oxygen Concentration - - Weight 93.9 kg (207 lb) 04/06/2025 11:21 AM EDT Height 160 cm (5' 3 ) 04/06/2025 11:21 AM EDT Body Mass Index 36.67 04/06/2025 11:21 AM EDT documented in this encounter Progress Notes * Micaela Wise CNM - 04/06/2025 11:00 AM EDT Subjective Patient ID: Loulou Garcia is a 24 y.o. female who presents for followup irregular periods. Pap NIL 04/2021. Gonorrhea/Chlamydia x 2 neg, HIV, syphilis and Hep C negative 01/2025. Serum hCG neg 01/2025. Concerned about changes in menstrual pattern as discussed at last visit. Normal menses 11/2024. 6/1 and 6/2- had spotting 6/3 x 4 days 7 x 4 days 02/18- had spotting 02/21 x 5 days LMP 03/22 x 5 days Normal TSH, hemoglobin A1C. Plan was to do pap and consider ultrasound. No further spotting, but notes some new onset vaginal irritation/discharge after using new body wash. No change in partner. Also notes retirement urge incontinence since giving . Using condoms, happy with method. Reports she had ovarian cyst previously. Denies pelvic pain. Review of Systems Genitourinary: Positive for menstrual problem and vaginal discharge. Negative for dyspareunia, dysuria, frequency, hematuria, pelvic pain, urgency, vaginal bleeding and vaginal pain. Objective BP 120/60 (BP Location: Left arm, Patient Position: Sitting, BP Cuff Size: Large adult) Pulse 90 Temp 99.1 ??F (37.3 ??C) (Oral) Resp 20 Ht 5' 3 (1.6 m) Wt 207 lb (93.9 kg) BMI 36.67 kg/m?? Physical Exam Backup Sawyer present: declines frame stylist. Constitutional: Appearance: Normal appearance. Genitourinary: General: Normal vulva. Labia: Right: No rash, tenderness, lesion or injury. Left: No rash, tenderness, lesion or injury. Vagina: Normal. No signs of injury and foreign body. No vaginal discharge, erythema, tenderness, bleeding or lesions. Cervix: No cervical motion tenderness, discharge, friability, lesion, erythema, cervical bleeding or eversion. Uterus: Normal. Not enlarged and not tender. Adnexa: Right adnexa normal and left adnexa normal. Right: No mass, tenderness or fullness. Left: No mass, tenderness or fullness. Comments: Ovaries non palpable bilaterally. Poor tone with Kegels, no prolapse noted. Neurological: Mental Status: She is alert. Psychiatric: Mood and Affect: Mood normal. Behavior: Behavior normal. Assessment/Plan Diagnoses and all orders for this visit: Irregular menses - Us Pelvis complete; Future - US Pelvis Transvaginal; Future Normal cycle past two months. Let's check ultrasound due to history of ovarian cyst as precaution. Continue to track menses. Cervical cancer screening - Pap Smear Pap sent. Repeat 3 years if normal. Vaginal itching - Bacterial Vaginosis, Yeast and trichomonas Bacterial vaginosis swab sent. Will treat positive results. History of ovarian cyst - Us Pelvis complete; Future - US Pelvis Transvaginal; Future Urge incontinence Try cutting back gradually on caffeine intake. Kegels taught. Let me know if not helpful in next 1-2m and I will refer to urogyn. documented in this encounter Plan of Treatment Scheduled Orders Name Type Priority Associated Diagnoses Order Schedule Pap Smear Pathology and Cytology Routine Cervical cancer screening Ordered: 04/06/2025 Us Pelvis complete Imaging Urgent Irregular menses History of ovarian cyst Expected: 04/06/2025, Expires: 04/06/2026 US Pelvis Transvaginal Imaging Urgent Irregular menses History of ovarian cyst Expected: 04/06/2025, Expires: 04/06/2026 documented as of this encounter Procedures Procedure Name Priority Date/Time Associated Diagnosis Comments BACTERIAL VAGINOSIS PANEL Routine 04/06/2025 11:31 AM EDT Vaginal itching documented in this encounter Results * (ABNORMAL) Bacterial Vaginosis, Yeast and Trich (04/06/2025 11:31 AM EDT) TRICHOMONAS VAGINALIS DETECTION BY PCR NOT DETECTED Not Detect [facility] BACTERIAL VAGINOSIS DETECTION BY PCR NEGATIVE Negative [facility] Comment:The BV organism targ ets of the Xpert Xpress MVP test can becommensal in women; Xpert Xpress MVP positive results forbacterial vaginosis should be considered in conjunction withother clinical and patient information to determine thedisease status. Organisms that are not detected by the XpertXpress MVP test have also been reported to be associatedwith BV and aerobic vaginitis.The Xpert Xpress MVP test performance has not been evaluatedin patients under the age of 14. ROSSY GROUP DETECTION BY PCR DETECTED(A) Not Detect [facility] Rossy glab krusei PCR NOT DETECTED Not Detect [facility] Swab Vaginal structure / Unknown 04/06/2025 11:31 AM EDT 04/06/2025 4:23 PM EDT us Micaela Wise CNM LAB MICROBIOLOGY - GENERA L ORDERABLES Final Result [facility] [address] [place] [phone] documented in this encounter Visit Diagnoses Diagnosis Irregular menses- Primary Irregular menstrual cycle Cervical cancer screening Screening for malignant neoplasm of the cervix Vaginal itching Pruritus of genital organs History of ovarian cyst Personal history of other genital system and obstetric disorders Urge incontinence documented in this encounter Additional Health Concerns Assessment Noted Time PHQ-9 Depression Total Score: 0 02/09/20 25 4:17 PM EDT documented as of this encounter Care Teams Manager Commercial Sales Relationship Specialty Start Date End Date Taylor Child MD [address] [place] [address] PCP - General Family Medicine 04/12/20 documented as of this encounter
[2025-04-06 17:49] LABS: Bacterial Vaginosis PCR NEGATIVE (Negative); Candida Group PCR DETECTED (Not Detect); Candida glab krusei PCR NOT DETECTED (Not Detect); Trichomonas vaginalis PCR NOT DETECTED (Not Detect)
--- OUTSIDE RECORDS SUMMARY | 2025-04-07 15:11 | XMS_ITS | Encounter Summary ---
Author Organization [facility] Address [address] [facility] [address] [place] [address] Care Team Providers Care Safety Belt Installer Name Role Phone Taylor Child MD Primary Care Provider [phone] Encounter Details Date Type Department Care Team ([facility] Contact Info) Description 04/07/2025 Results Follow-Up [facility] [address] [place] [address] Micaela Wise CNM [address] [place] [address] Bacterial Vaginosis, Yeast and Trich Social History Tobacco Use Types Packs/Day Years [...] is your housing situation today? I have acin fitzgerald 01/28/[address] you [...] Q2 Not on file 01/28/2025 Comments No Sex and Gender Information Value Date Recorded Sex Assigned at Female 05/28/2022 10:30 AM EDT Legal Sex Female 10:30 AM EDT Gender Identity Female 05/28/2022 10:30 AM EDT Sexual Orientation Straight 05/28/2022 10 :30 AM EDT documented as of this encounter Plan of Treatment Not on file documented as of this encounter Visit Diagnoses Not on filedocumented in this encounter Additional Health Concerns Assessment Noted Time PHQ-9 Depression Total Score: 0 02/09/20 25 4:17 PM EDT documented as of this encounter Care Teams Safety Belt Installer Relationship Specialty Start Date End Date Taylor Child MD [address] [place] [id number] PCP - General Family Medicine 04/12/20 documented as of this encounter
--- OUTSIDE RECORDS SUMMARY | 2025-04-07 15:11 | XMS_ITS | Encounter Summary ---
Author Organization [employer] Address [address] [facility] [address] [place] [address] Care Team Providers Care Logistics Assistant Name Role Phone Taylor Child MD Primary Care Provider [phone] Reason for Visit * Reason Onset Date Comments triage 11/01/2022 Encounter Details Date Type Department Care Team ([facility] st Contact Info) Description 11/01/2022 Telephone [facility] MED[facility] [address] [place], [place] [phone] Taylor Child MD [address] [place] [address] triage Social History Tobacco Use Types Packs/Day Years Used Date Smoking Tobacco: Never Assessed Comments Unknown Sex and Gender Information Value Date Recorded Sex Assigned at Female 05/28/2022 10:30 AM EDT Legal Sex Female 10:30 AM EDT Gender Identity Female 05/28/2022 10:30 AM EDT Sexual Orientation Straight 05/28/2022 10 :30 AM EDT documented as of this encounter Miscellaneous Notes * Telephone Encounter - Sumaya Cardona RN - 11/01/2022 11:17 AM EDT Triage call with [employer] Test Engineer ID [id number] Pt reports vaginal discharge which started last week. Pt reports cottage cheese like drainage , slight odor, itchiness and becerra when urinates. Pt reports washing with soap and water in the shower makes it more itchy. Pt reports has had these symptoms before usually happens around this time of year. Home care advised and hand out sent with information for antifungal medication. Pt agrees with disposition and if not better by Saturday will call back . Home care reviewed as well. Protocol Used: Vaginal Discharge (Adult) Protocol-Based Disposition: Home Care Positive Triage Question: * Symptoms of a vaginal yeast infection (i.e., white, thick, [id number], itchy, not bad smelling discharge) * All higher-acuity triage questions were negative Care Advice Discussed: * Reassurance and Education - Vaginal Yeast Infection * Antifungal Medicine for Yeast Infection * Antifungal Medicine for Yeast Infection - Extra Notes and Warnings * Genital Hygiene * Test, When in Doubt * Expected Course * Reasons To Call Back - test is positive - No improvement after treating yourself for a vaginal yeast infection - Discharge becomes yellow or green - Discharge becomes foul smelling or itchy - Fever or abdomen pain occur - You become worse Vaginal Discharge ([place]) handout sent to [phone] * Telephone Encounter - Josee Johnson - 11/01/2022 10:43 AM EDT Symptom: Vaginal Symptoms - Not Bleeding Outcome: Schedule an urgent appointment (within 4 hours) or talk to a nurse or provider soon Reason: Foul-smelling vaginal discharge The caller accepted this outcome documented in this encounter Plan of Treatment Not on file documented as of this encounter Visit Diagnoses Not on filedocumented in this encounter Care Teams Logistics Assistant Relationship Specialty Start Date End Date Taylor Child MD [address] [place] [id number] PCP - General Family Medicine 04/12/20 documented as of this encounter
--- OUTSIDE RECORDS SUMMARY | 2025-04-07 15:11 | XMS_ITS | Clinical Summary ---
Author Organization [employer] Address [address] [facility] 7t [place] [address] Care Team Providers Care Jewel Waxer Name Role Phone Taylor Child MD Primary Care Provider [phone] Allergies No known active allergies Medications Vit-Fe Fumarate-FA (PrePLUS) 27-1 MG tabletIndicatio ns:Amenorrhea TAKE 1 TABLET BY MOUTH EVERY DAY 90 tablet 3 5 Active fluconazole (Diflucan) 150 MG tablet Take 1 tablet (150 mg) by mouth 1 (one) time for 1 dose. 1 tablet 5 04/07/20 25 Active amoxicillin (Amoxil) 500 MG capsuleIndicati ons:Non-recurre nt acute suppurative otitis media of left ear without spontaneous rupture of tympanic membrane Take 1 tab po bid for 10 days 14 capsule 5 04/06/20 25 Discontinued Active Problems Problem Noted Date Diagnosed Date Class 1 obesity without seri ous comorbidity with body mass index (BMI) of 34.0 to 34.9 in adult 04/14/2024 Kidney stone 01/07/2023 Mild intermittent asthma 01/07/2023 Nausea 01/07/2023 Arm pain, central, right 01/07/2023 Assessment & Plan (01/07/2023 3:39 PM EDT): At site of [facility] Blurry vision, bilateral 01/07/2023 Assessment & Plan (01/07/2023 3:42 PM EDT): Vision changes after No CEE in many years, please assess for need for glasses Fibroadenoma of left breast 08/09/2021 Large breasts 07/06/2020 Mass of left breast 07/06/2020 Assessment & Plan (09/11/2023 12:25 PM EST): Will re-image L breast with recurrence and growth of L 2 oclock mass Depending on results with triage to breast surgery if needed to biopsy again versus plastic surgery as pt wants to have breast reduction Discused ways to decrease milk supply and wean her almost 2 year old Overweight 07/06/2020 Encounters Date Type Department Care Team Description 04/07/2025 Results Follow-Up [address] [address] Micaela Wise CNM Bacterial Vaginosis, Yeast and Trich 04/07/2025 Orders Only [address] [address] Micaela Wise CNM 04/06/2025 11:00 AM EDT Procedure Visit [address] [address] Micaela Wise CNM Irregular menses (Primary Dx); Cervical cancer screening; Vaginal itching; History of ovarian cyst; Urge incontinence 04/06/2025 Travel 04/05/[address] [address] Micaela Wise CNM chart prep 03/02/[address] [address] Taylor Child MD Referral 03/02/[address] [address] Taylor Child MD Durable Medical Equipment 02/26/2025 Orders Only [address] [address] Carol Kohler RN 02/24/2025 Telephone [facility] [address] [place] [address] Taylor Child MD stable lab letter 02/23/2025 10:30 AM EDT Office Visit [address] [address] Micaela Wise CNM Irregular menses (Primary Dx) 02/23/2025 Results Follow-Up [address] [address] Taylor Child MD Lipid Panel, Standard, Comprehensive Metabolic Panel, TSH W/Reflex to FT4, Hemoglobin A1c 02/23/2025 Travel 02/22/[address] [address] Taylor Child MD Nurse Triage 02/08/2025 4:00 PM EDT Office Visit [address] [address] Taylor Child MD Dietary counseling; Exercise counseling; Class 1 obesity due to excess calories with serious comorbidity and body mass index (BMI) of 34.0 to 34.9 in adult; Mild intermittent asthma, unspecified whether complicated 02/08/2025 Travel 02/05/[address] [address] Taylor Child MD chart prep 01/28/2025 Patient Outreach [address] [address] Taylor Child MD Care Coordination (CHW outreach for SDOH food needs-referral completed /) 01/28/2025 Patient Outreach [address] [address] Taylor Child MD Pre-visit Planning (SDOH screening positive and tobacco screening negative) 01/06/2025 11:20 AM EDT Office Visit [facility] [address] [place] [phone] Sona Duarte MD Non-recurrent acute suppurative otitis media of left ear without spontaneous rupture of tympanic membrane (Primary Dx) from Last 3 Months Immunizations Immunization Administration Dates Next Due DTaP 04/10/2004, 4,10/07/2000,04/18 DTaP, 5 pertussis antigens 01/17/2000 HPV 9-Valent 02/10/2014 HPV, Unspecified 07/02/2016,09/16/2015 Hep A, Adult 03/26/2019 Hep A, ped/adol, 2 dose 09/13/2016 Hep B, Adolescent or Pediatric 07/01/2000,1999,01/17/2000 HiB, unspecified 05/27/2001,07/01/2000, 0 Hib (PRP-T) 01/17/2000 IPV 03/08/2004, 0,04/18/2000,01/16 Influenza injectable quadriv alent IIV4 with preservative 09/16/2015,04/23/2013 Influenza injectable quadriv alent preservative free 08/09/2021,09/13/2016 MMR 03/08/2004,05/27/2001 Meningococcal ACWY, unspecified 07/02/2016 Meningococcal MCV4P ACYW-135 02/10/2014 TD (adult), 2 Lf tetanus tox oid, preservative free, adsorbed 02/10/2014 Tdap 10/23/2021,02/10/2014 Varicella 02/10/2014,05/27/2001 Social History Tobacco Use Types Packs/Day Years Used Date Smoking Tobacco: Never Passive Smoke Exposure: Never Smokeless Tobacco: Never Tobacco Cessation:Counseling Given: Not Answered Alcohol Use Standard Drinks/Week Comments Never 0 [...] Orientation Straight 05/28/2022 10 :30 AM EDT Last Filed Vital Signs Vital Sign Reading Time Taken Comments Blood Pressure 120/60 04/06/2025 11:21 AM EDT Pulse 90 04/06/2025 11:21 AM EDT Temperature 37.3 C (99.1 F) 04/06/2025 11:21 AM EDT Respiratory Rate 20 04/06/2025 11:21 AM EDT Oxygen Saturation 99% 02/23/2025 10:51 AM EDT Inhaled Oxygen Concentration - - Weight 93.9 kg (207 lb) 04/06/2025 11:21 AM EDT Height 160 cm (5' 3 ) 04/06/2025 11:21 AM EDT Body Mass Index 36.67 04/06/2025 11:21 AM EDT Plan of Treatment Health Maintenance Due Date Last Done Comments Pneumococcal Vaccine: Pediatrics (0 to 5 Years) and At-Risk Patients (6 to 49) Years (1 of 2 - PCV) 10/26/2018 Pap Smear 05/22/2024 05/22/2021, 12/05/2020 COVID-19 Vaccine ( season) 2025 03/22/2021, 03/01/2021 Influenza Vaccine (#1) 2025 , 09/13/2016, 09/16/2015, Additional history exists SDOH Screening 01/28/2026 01/28/2025 Alcohol/Substance Use Screening 02/08/2026 02/08/2025 Depression Screening 02/08/2026 02/08/2025, 02/09/20 25 Tobacco Screening 02/23/2026 02/23/2025 Disability Screening 04/06/2026 04/06/2025 Family Planning (PISQ) 04/06/2026 04/06/2025 Lipid Panel 02/23/2030 02/23/2025 DTaP/Tdap/Td Vaccines (7 - Td or Tdap) 10/24/2031 10/23/2021, 02/10/2014, 02/10/2014, Additional history exists Zoster Vaccines (1 of 2) 10/26/2049 RSV Patients and Patients Aged 60 years or older (1 - 1-dose 75+ series) 10/26/2074 Hepatitis B Vaccines Completed 07/01/2000, 04/18/2000, 01/17/2000 HIB Vaccines Completed 05/27/2001, 10/1999, 04/18/2000, Additional history exists IPV Vaccines Completed 03/08/2004, 10/1999, 04/18/2000, Additional history exists HPV Vaccines Completed 07/02/2016, 08/29, 02/10/2014 Meningococcal Vaccine Completed 07/02/2016, 014 Hepatitis A Vaccines Completed 03/26/2019, 09/13/19 17 HIV Screening Completed 02/23/2025, 05/26/2021 Hepatitis C Screening Completed 02/23/2025, 021 Meningococcal B Vaccine Aged Out No l onger eligible based on patient's age to complete this topic RSV under 20 months Aged Out No longe r eligible based on patient's age to complete this topic Rotavirus Vaccines Aged Out No longer eligible based on patient's age to complete this topic Procedures Procedure Name Priority Date/Time Associated Diagnosis Comments BACTERIAL VAGINOSIS PANEL Routine 04/06/2025 11:31 AM EDT Vaginal itching POCT , URINE Routine 02/23/2025 11:10 AM EDT Irregular menses HCG, TOTAL, QN Routine 02/23/2025 10:05 AM EDT Irregular menses HEMOGLOBIN A1C Routine 02/23/2025 10:05 AM EDT Class 1 obesity due to excess calories with serious comorbidity and body mass index (BMI) of 34.0 to 34.9 in adult TSH W/REFLEX TO FT4 Routine 02/23/2025 1 0:05 AM EDT Class 1 obesity due to excess calories with serious comorbidity and body mass index (BMI) of 34.0 to 34.9 in adult COMPREHENSIVE METABOLIC PANEL Routine 02/23/2025 10:05 AM EDT Class 1 obesity due to excess calories with serious comorbidity and body mass index (BMI) of 34.0 to 34.9 in adult LIPID PANEL, STANDARD Routine 02/23/2025 10:05 AM EDT Class 1 obesity due to excess calories with serious comorbidity and body mass index (BMI) of 34.0 to 34.9 in adult SYPHILIS ABS ([place] [facility]) Routine 02/23/2025 HEPATITIS C ANTIBODY ([place] [facility]) Routine 02/23/2025 HIV ANTIBODY/ANTIGEN ([place] [facility]) Routine 02/23/2025 CHLAMYDIA/GONORRHEA THROAT SWAB ([place] [facility]) Routine 02/23/2025 CHLAMYDIA/GONORRHEA VAGINAL SWAB ([place] [facility]) Routine 02/23/2025 HM PAP/HPV Routine 05/22/2021 from Last 3 Months or Most Recently Relevant to Health Maintenance Results * (ABNORMAL) Bacterial Vaginosis, Yeast and Trich (04/06/2025 11:31 AM EDT) TRICHOMONAS VAGINALIS DETECTION BY PCR NOT DETECTED Not Detect [facility] BACTERIAL VAGINOSIS DETECTION BY PCR NEGATIVE Negative [facility] Comment:The BV organism targ ets of [...] GROUP DETECTION BY PCR DETECTED(A) Not Detect [facility] Rossy glab krusei PCR NOT DETECTED Not Detect [facility] Swab Vaginal structure / Unknown 04/06/2025 11:31 AM EDT 04/06/2025 4:23 PM EDT Micaela FARMER LAB MICROBIOLOGY - GENERA L ORDERABLES Final Result Performing Organization Address [facility]/ZIP Co de Phone Number [facility] [address] [place] [phone] * POCT , urine manually resulted (02/23/2025 11:10 AM EDT) Preg Test, Ur Negative Negative, Indeterminate, None Detected, Invalid, Specimen unsatisfactory for evaluation, Weakly Positive, 2+ QC Media Lot # [id number] Lot# Expiration Date [id number] Urine 02/23/2025 11:1 0 AM EDT Micaela Wise CNM POINT OF CARE TEST ENTER/ EDIT ORDERABLES Final Result * TSH W/Reflex to FT4 (02/23/2025 10:05 AM EDT) TSH reflex Free T4 2.02 0.32 - 4.0 uIU/mL [facility] Blood Venous blood specimen / Unknown 02/23/2025 10:05 AM EDT 02/23/2025 11:08 AM EDT Taylor Child MD LAB BLOOD ORDERABLES Final Res ult Performing Organization Address City/[facility]/ZIP Co de Phone Number [facility] [address] [place] [phone] * hCG, Total, Quantitative (02/23/2025 10:05 AM EDT) HCG Quantitative <2 mIU/mL [facility] Comment:Weeks post LMP Appro ximate hCG(Last Menstrual Period) Range (mIU/ml)3 - 4 weeks 9 - 1304 - 5 weeks 75 - 2,6005 - 6 weeks 850 - 20,8006 - 7 weeks 4000 - 100,2007 - 12 weeks 11,500 - 289,00982 - 16 weeks 18,300 - 137,02266 - 29 weeks (2nd trimester) 1,400 - 53,66507 - 41 weeks (3rd trimester) 940 - 60,000The Isaacs B- hCG assay is used for the early detection ofpregnancy; it cannot be used to diagnose any conditionunrelated to . If a B-hCG level is not supportedby the clinical evidence, results should be confirmed by analternative method (qualitative urine hCG, for example). Blood Venous blood specimen / Unknown 02/23/2025 10:05 AM EDT 02/23/2025 11:49 AM EDT Deric Perez [facility] LAB BLOOD ORDERABLES Nury colbert Result [facility] [address] [place] [phone] * Hemoglobin A1c (02/23/2025 10:05 AM EDT) Hemoglobin A1c 4.7 <6.0 % [facility] Comment:Hemoglobin A1C Refer ence Range Adults: 4.8 - 6.0 % Non diabetic: < 6.0 % Goal: < 7.0 %Additional Action Suggested: > 8.0 %Note: Hemoglobin A1c results are invalid for patients with abnormal amounts of HbF. Blood transfusions may impact the HbA1c concentration in the patient sample. Estimated Average Glucose 88 mg/dL [facility] Comment:eAG = Estimated ave rage glucose which is %A1C expressed asaverage glucose, using the formula of the Q3F-VjscpelKfceuwt Glucose study (ADAG), Diabetes Care, Vol.31,#8,2007 Blood Venous blood specimen / Unknown 02/23/2025 10:05 AM EDT 02/23/2025 11:08 AM EDT Taylor Child MD LAB BLOOD ORDERABLES Final Res ult Performing Organization Address [facility] Co de Phone Number [facility] [address] [place] [phone] * (ABNORMAL) Lipid Panel, Standard (02/23/2025 10:05 AM EDT) Triglycerides 132 <150 mg/dL [facility] Comment:Desirable Triglyceri de: less than 150 mg/dLBorderline High Triglyceride 150-199 mg/dLHigh Triglyceride: 200-499 mg/dLVery High Triglyceride: greater than or equal to 5OO mg/dL Cholesterol 195 <200 mg/dL [facility] Comment:Desirable Cholestero l: less than 200 mg/dLBorderline High Cholesterol: 200-239 mg/dLHigh Cholesterol: greater than 239 mg/dL LDL Cholesterol Calculated 135(H) <100 mg/dL [facility] Comment:Desirable LDL: less than 100 mg/dLNear Optimal/Above Optimal LDL: 110- 129 mg/dLBorderline High LDL: 130-159 mg/dLHigh LDL: 160-189 mg/dLVery High LDL: greater than or equal to 190 mg/dL HDL Cholesterol 34(L) >40 mg/dL [facility] Comment:Desirable HDL: great er than 40 mg/dL Note: This HDL assay may give artificially low results in patients with liver disease. Blood Venous blood specimen / Unknown 02/23/2025 10:05 AM EDT 02/23/2025 11:08 AM EDT Taylor Child MD LAB BLOOD ORDERABLES Final Res ult Performing Organization Address [facility]/ZIP Co de Phone Number [facility] [address] [place] [phone] * Comprehensive Metabolic Panel (02/23/2025 10:05 AM EDT) Sodium 143 135 - 145 mmol/L [facility] Potassium 3.9 3.3 - 5.1 mmol/L [facility] Chloride 108 96 - 108 mmol/L [facility] Carbon Dioxide 26 22 - 29 mmol/L [facility] Anion Gap 13 12 - 20 [facility] Urea Nitrogen (BUN) 11 9 - 16 mg/dL [facility] Creatinine, Serum 0.62 0.5 - 1.4 mg/dL [facility] Estimated Glomerular Filt Rate >60 [facility] Comment:Chronic Kidney Disea se: Estimated GFR < 60 mL/min/1.19y1Gohvsr Kidney Disease: Estimated GFR < 15 mL/min/1.73m2 Glucose 93 60 - 115 mg/dL [facility] Calcium 9.1 8.4 - 10.2 mg/dL [facility] Bilirubin, Total 0.5 0.0 - 1.0 mg/dL [facility] Aspartate Amino Transferase 18 5 - 31 U/L [facility] Alanine Aminotransferase 11 0 - 31 U/L [facility] Total Protein 7.1 6.5 - 8.0 g/dL [facility] Albumin Level 4.4 3.5 - 5.0 g/dL [facility] Alkaline Phosphatase 84 39 - 117 U/L [facility] Blood Venous blood specimen / Unknown 02/23/2025 10:05 AM EDT 02/23/2025 11:08 AM EDT us Taylor Child MD LAB BLOOD ORDERABLES Final Res ult [facility] [address] [place] [phone] * Chlamydia/Gonorrhea Vaginal Swab ([facility]) (02/23/2025) Chlamydia Vaginal Swab Negative Negative, Indeterminate, None Detected, Invalid, Specimen unsatisfactory for evaluation, Weakly Positive, 2+ Gonorrhea Vaginal Swab Negative Negative, Indeterminate, None Detected, Invalid, Specimen unsatisfactory for evaluation, Weakly Positive, 2+ Swab Vaginal structure / Unknown 02/23/2025 Result [facility] LAB MICROBIOLOGY - GENERA L ORDERABLES Final Result * Chlamydia/Gonorrhea Throat Swab ([place] [facility]) (02/23/2025) Chlamydia Throat Swab Negative Gonorrhea Throat Swab Negative Swab 02/23/2025 Result [facility] Provider LAB MICROBIOLOGY - GENERA L ORDERABLES Final Result * Syphilis Antibodies ([facility]) (02/23/2025) Syphilis Abs Nonreactive Borderline, Nonreactive, Weakly Reactive, Inconclusive, Specimen unsatisfactory for evaluation Blood Venous blood specimen / Unknown 02/23/2025 Result [facility] LAB BLOOD ORDERABLES Edit ed Result - Final * Hepatitis C Antibody ([place] [facility]) (02/23/2025) Hepatitis C Ab Nonreactive Blood 02/23/2025 Result [facility] LAB BLOOD ORDERABLES Nury l Result * HIV Ab/Ag ([place] [facility]) (02/23/2025) HIV Ag/Ab Nonreactive Blood 02/23/2025 Result [facility] Provider LAB BLOOD ORDERABLES Nury l Result * Hm Pap Smear (05/22/2021) Result [facility] Provider HEALTH MAINTENANCE Final Result from Last 3 Months or Most Recently Relevant to Health Maintenance Insurance [facility] C3 Care Teams Jewel Waxer Relationship Specialty Start Date End Date Taylor Child MD [address] [place] [phone] PCP - General Family Medicine 04/12/20
--- OUTSIDE RECORDS SUMMARY | 2025-04-07 15:11 | XMS_ITS | Encounter Summary ---
Author Organization [employer] Address [address] [facility] 7 [place] [address] Care Team Providers Care Social Media Marketing Specialist Name Role Phone Taylor Child MD Primary Care Provider Reason for Referral * Consultation (Routine) - Canceled Specialty Diagnoses / Procedures Referred By Rashad qureshi Referred To Contact Plastic Surgery Diagnoses Large breasts Mass of left breast, unspecified quadrant Neck pain Taylor Child MD [address] [place] [address] Phone: tel: fax: [facility] [address] [place] [address] Drive [address] [place], [place] Phone: tel: fax: Referral ID Status Reason Start Date Expiration Date Visits Requested Visits Authorized [id number] Canceled Specialty Services Required 12/20/2023 12/19/2024 1 1 Encounter Details Date Type Department Care Team (Late st Contact Info) Description 12/20/[address] [facility] [address] [place], [place] [phone] Taylor Child MD [address] [place], [place] [phone] Large breasts (Primary Dx); Mass of left [...] Cervicalgia documented in this encounter Care Teams Social Media Marketing Specialist Relationship Specialty Start Date End Date Taylor Child MD [address] [place] [address] PCP - General Family Medicine 04/12/20 documented as of this encounter
--- OUTSIDE RECORDS SUMMARY | 2025-04-07 15:12 | XMS_ITS | Encounter Summary ---
Author Organization [employer] Address [address] [facility] 7 [place] [address] Care Team Providers Care Farm Facility Manager Name Role Phone Taylor Child MD Primary Care Provider [phone] Reason for Visit * Reason Onset Date Comments chart prep 04/05/2025 Encounter Details Date Type Department Care Team ([facility] st Contact Info) Description 04/05/2025 Telephone [facility] [address] [place], [place] [phone] Micaela Wise CNM [address] [place] [address] chart prep Social History Tobacco Use Types Packs/Day Years [...] encounter Miscellaneous Notes * Telephone Encounter - Yanely Olivares [place] - 04/05/2025 1:22 PM EDT Chart Prep Labs: done Images: not applicable Referrals: not applicable Vaccines due: Covid and Flu Screenings: pap smear Overdue care gaps: Disability screen documented in this encounter Plan of Treatment Not on file documented as of this encounter Visit Diagnoses Not on filedocumented in this encounter Additional Health Concerns Assessment Noted Time PHQ-9 Depression Total Score: 0 02/09/20 25 4:17 PM EDT documented as of this encounter Care Teams Farm Facility Manager Relationship Specialty Start Date End Date Taylor Child MD [address] [place] [address] PCP - General Family Medicine 04/12/20 documented as of this encounter
--- OUTSIDE RECORDS SUMMARY | 2025-04-07 15:12 | XMS_ITS | Clinical Summary ---
Author Organization [employer] [facility] ity Address [address] [place] [address] Care Team Providers Care Lan Engineer Name Role Phone Unavailable Primary Care Provider [...] Cervical Cancer Screening: P ap Smear 10/26/2020 Depression Screening 07/29/2024 COVID-19 Vaccine ( - 2023-2 5 season) 2025 Influenza Vaccine (#1) 2025 HIB Vaccines Aged [...]
--- OUTSIDE RECORDS SUMMARY | 2025-04-07 15:12 | XMS_ITS | Encounter Summary ---
Author Organization [employer] Address [address] [facility] 7t [place] [address] Care Team Providers Care Manufacturing Assembler Name Role Phone Taylor Child MD Primary Care Provider [phone] Encounter Details Date Type Department Care Team ([facility] Contact Info) Description 04/07/2025 Orders Only [facility] [address] [place], [place] [phone] Micaela Wise CNM [address] [place] [address] Social History Tobacco Use Types Packs/Day Years [...] documented as of this encounter Care Teams Manufacturing Assembler Relationship Specialty Start Date End Date Taylor Child MD [address] [place] [address] PCP - General Family Medicine 04/12/20 documented as of this encounter
--- OUTSIDE RECORDS SUMMARY | 2025-04-07 15:12 | XMS_ITS | Encounter Summary ---
Author Organization [employer] Address [address] [facility] [address]t [place] [address] Care Team Providers Care Networker Name Role Phone Taylor Child MD Primary Care Provider Encounter Details Date Type Department Care Team (Latest Contact Info) Description 02/23/2025 Results Follow-Up [facility] [address] [place], [place] [phone] Taylor Child MD [address] [place] [address] Lipid Panel, Standard, Comprehensive Metabolic Panel, TSH W/Reflex to FT4, Hemoglobin A1c Social History Tobacco Use Types Packs/Day Years [...] as of this encounter Miscellaneous Notes * Result Encounter Note - Taylor Child MD - 02/23/2025 7:27 PM EDT Please send normal labs letter in Kyrgyz documented in this encounter Plan of Treatment Not on file documented as of this encounter Visit Diagnoses Not on filedocumented in this encounter Additional Health Concerns Assessment Noted Time PHQ-9 Depression Total Score: 0 02/09/20 25 4:17 PM EDT documented as of this encounter Care Teams Networker Relationship Specialty Start Date End Date Taylor Child MD [address] [place] [phone] PCP - General Family Medicine 04/12/20 documented as of this encounter
--- OUTSIDE RECORDS SUMMARY | 2025-04-07 15:12 | XMS_ITS | Encounter Summary ---
Author Organization [employer] [facility] Address [address] [place] [address] 7 [place] [address] Care Team Providers Care Specialized Developer Name Role Phone Taylor Child MD Primary Care Provider [phone] Encounter Details Date Type Department Care Team ([facility] st Contact Info) Description 04/23/2023 Orders Only [facility] [address] [place], [place] [phone] Provider, MD Fred Social History Tobacco Use Types Packs/Day Years Used Date Smoking Tobacco: Never Smokeless Tobacco: Never Alcohol Use Standard Drinks/Week Comments Never 0 (1 standard drink = 0.6 oz pur e alcohol) Comments No Sex and Gender Information Value Date Recorded Sex Assigned at Female 05/28/2022 10:30 AM EDT Legal Sex Female 10:30 AM EDT Gender Identity Female 05/28/2022 10:30 AM EDT Sexual Orientation Straight 05/28/2022 10 :30 AM EDT documented as of this encounter Plan of Treatment Not on file documented as of this encounter Procedures Procedure Name Priority Date/Time Associated Diagnosis Comments HM PAP/HPV Routine 05/22/2021 documented in this encounter Results * Hm Pap Smear (05/22/2021) Historical Provider HEALTH MAINTENANCE Final Result documented in this encounter Visit Diagnoses Not on filedocumented in this encounter Care Teams Specialized Developer Relationship Specialty Start Date End Date Taylor Child MD [address] [place], [place] [phone] PCP - General Family Medicine 04/12/20 documented as of this encounter
--- OUTSIDE RECORDS SUMMARY | 2025-04-07 15:12 | XMS_ITS | Encounter Summary ---
Author Organization [employer] Address [address] [facility] 7t [place] [address] Care Team Providers Care Senior Sharepoint Developer Name Role Phone Taylor Child MD Primary Care Provider [phone] Encounter Details Date Type Department Care Team (Latest Contact Info) Description 04/06/2025 Travel Social History Tobacco Use Types Packs/Day Years [...] documented as of this encounter Care Teams Senior Sharepoint Developer Relationship Specialty Start Date End Date Taylor Child MD [address] [place] [phone] PCP - General Family Medicine 04/12/20 documented as of this encounter
== END 2025-04-07 12:01 | disposition home or self-care (01) ==
LOC: HO.LNP 12:00
PROVIDERS: Visit Provider Advanced Practice Midwife
DX: Z12.4 Encounter for screening for malignant neoplasm of cervix (principal); N89.8 Other specified noninflammatory disorders of vagina
CPT/HCPCS: 81515; 88175

== ENCOUNTER 2025-04-08 11:00 | Outpatient (REF) | payer MEDICAID, SELFPAY ==
--- NOTE | ~2025-04-08 | US_ITS ---
EXAMINATION: US PELVIS CLINICAL INFORMATION: ovarian cyst, irregular menses COMPARISON: None available. TECHNIQUE: Ultrasound of the pelvis is performed using both transabdominal and transvaginal transducers along with Doppler. Transvaginal imaging is performed due to inadequate visualization transabdominally. FINDINGS: Uterus: The uterus is anteverted and measures 10.0 x 4.3 x 5.6 cm. The double wall endometrial thickness is 9 mm. The uterus is smooth in contour and has normal myometrial echogenicity. No visible fibroid. Adnexa: Both ovaries are visualized. There is normal color flow to the adnexa. There is no ovarian torsion. There is no pelvic ascites or fluid collection. Right ovary measures 4.4 x 3.6 x 3.6 cm. There is a 3.9 x 2.9 x 3.1 hypoechoic mass with increased through transmission and no internal blood flow on color Doppler consistent with a complex cyst. There is mild irregular thickening of the wall which demonstrates blood flow on color Doppler. Left ovary measures 2.2 x 2.3 x 2.9 cm. There is an isoechoic cyst measuring 16 mm likely representing small hemorrhagic cyst/follicle. US/US pelvic and transvaginal IMPRESSION: Right ovarian cyst with indeterminate characteristics, suspected hemorrhagic cyst or endometrioma 3.9 cm maximum dimension. Follow-up in 6-12 weeks. Electronically signed by: Arturo Nolen MD 04/08/2025 11:53 AM EDT
--- OUTSIDE RECORDS SUMMARY | 2025-04-08 15:09 | XMS_ITS | Clinical Summary ---
Author Organization [facility] [facility] ity Address [address] [place] [address] Care Team Providers Care Radio Assembler Name Role Phone Unavailable Primary Care Provider [...]
== END 2025-04-08 11:01 | disposition home or self-care (01) ==
LOC: HO.US 11:00
PROVIDERS: PCP General Practice; Visit Provider Advanced Practice Midwife
DX: N92.6 Irregular menstruation, unspecified (principal); Z87.42 Personal history of other diseases of the female genital tract
CPT/HCPCS: 76830; 76856

== ENCOUNTER → 2025-04-08 11:09 | Outpatient (BNV) | payer MEDICAID, SELFPAY | PROVIDERS: PCP General Practice; Visit Provider Radiology Diagnostic Radiology | DX: N83.201 Unspecified ovarian cyst, right side (principal) | CPT/HCPCS: 76830; 76856 ==

== ENCOUNTER 2025-05-17 13:17 | Outpatient (REF) | payer MEDICAID, SELFPAY ==
--- NOTE | ~2025-05-17 | US_ITS ---
EXAMINATION: US PELVIS CLINICAL INFORMATION: Follow-up 3.9 cm right ovarian cyst. COMPARISON: April 08, 2025. TECHNIQUE: Ultrasound of the pelvis is performed using both transabdominal and transvaginal transducers along with Doppler. Transvaginal imaging is performed due to inadequate visualization transabdominally. FINDINGS: Uterus: The uterus is anteversion flexion and measures 9 x 5 x 6 cm. Volume: 132 cc. The double wall endometrial thickness is 17 mm. The uterus is smooth in contour and has normal myometrial echogenicity. No visible fibroid. Adnexa: The ovaries are identified with with flow on color Doppler interrogation. There is no pelvic ascites or fluid collection. Right ovary measures 3 x 2 x 2 cm. Volume: 7 cc. No solid or cystic lesion. Left ovary measures 3 x 3 x 2 cm. Volume: 12 cc. No solid or cystic lesion. Scattered follicles. US/US pelvic and transvaginal IMPRESSION: Resolved ovarian cyst. No ovarian torsion. Normal ovaries. Thickened, 17 mm endometrial stripe. Electronically signed by: Parmjit Lord MD 05/17/2025 02:53 PM EDT
--- OUTSIDE RECORDS SUMMARY | 2025-05-17 16:16 | XMS_ITS | Encounter Summary ---
Author Organization [employer] Address [address] [facility] 7 [place] [address] Care Team Providers Care Toy Assembler Name Role Phone Taylor Child MD Primary Care Provider [phone] Reason for Referral * Consultation (Routine) - Canceled Specialty Diagnoses / Procedures Referred By Rashad qureshi Referred To Contact Plastic Surgery Diagnoses Large breasts Mass of left breast, unspecified quadrant Neck pain Taylor Child MD [address] [place] [address] Phone: tel: fax: [facility] Plastic Surgery [address] [place] [address] Drive [address] [place], [place] Phone: tel: fax: Referral ID Status Reason Start Date Expiration Date Visits Requested Visits Authorized [id number] Canceled Specialty Services Required 12/20/2023 12/19/2024 1 1 Encounter Details Date Type Department Care Team (Late st Contact Info) Description 12/20/2023 Orders Only [facility] MEDICINE [address] [place], [place] [phone] Talyor Child MD [address] [place], [place] [phone] Large breasts (Primary Dx); Mass of left [...] Cervicalgia documented in this encounter Care Teams Toy Assembler Relationship Specialty Start Date End Date Taylor Child MD [address] [place] [address] PCP - General Family Medicine 04/12/20 documented as of this encounter
--- OUTSIDE RECORDS SUMMARY | 2025-05-17 16:16 | XMS_ITS | Encounter Summary ---
Author Organization [employer] Address [address] [facility] 7t [place] [address] Care Team Providers Care Cardiac Exercise Physiologist Name Role Phone Taylor Child MD Primary Care Provider [phone] Encounter Details Date Type Department Care Team ([facility] Contact Info) Description 04/07/2025 Results Follow-Up [facility] MEDICINE [address] [place], [place] [phone] Micaela Wise CNM [address] [place] [address] Bacterial Vaginosis, Yeast and Trich, US Pelvis Transvaginal, Pap Smear Social History Tobacco Use Types Packs/Day Years [...] documented as of this encounter Care Teams Cardiac Exercise Physiologist Relationship Specialty Start Date End Date Taylor Child MD [address] [place] [phone] PCP - General Family Medicine 04/12/20 documented as of this encounter
--- OUTSIDE RECORDS SUMMARY | 2025-05-17 16:17 | XMS_ITS | Clinical Summary ---
Author Organization [facility] Address [address] [place] [address] Care Team Providers Care Director Of Business Operations Name Role Phone Unavailable Primary Care Provider [...] 5 season) 2025 Influenza Vaccine (#1) 2025 RSV Immunization Adult Patie nts (1 - 1-dose 75+ series) 10/26/2074 HIB Vaccines Aged Out No longer eligi [...]
--- OUTSIDE RECORDS SUMMARY | 2025-05-17 16:17 | XMS_ITS | Clinical Summary ---
Author Organization [employer] Address [address] [facility] 7t [place] [address] Care Team Providers Care Seaming Inspector Name Role Phone Taylor Child MD Primary Care Provider [phone] Allergies No known active allergies Medications Vit-Fe Fumarate-FA (PrePLUS) 27-1 MG tabletIndication s:Amenorrhea TAKE 1 TABLET BY MOUTH EVERY DAY 90 tablet 3 12/18/2024 Active Active Problems Problem Noted Date Diagnosed Date Class 1 obesity without seri ous comorbidity with body mass index (BMI) of 34.0 to 34.9 in adult 04/14/2024 Kidney stone 01/07/2023 Mild intermittent asthma 01/07/2023 Nausea 01/07/2023 Arm pain, central, right 01/07/2023 Assessment & Plan (01/07/2023 3:39 PM EDT): [facility], bilateral 01/07/2023 Assessment & Plan [...] Encounters Date Type Department Care Team Description 04/08/2025 Orders Only [address] [place] [address] Nitin Weller CNM Right ovarian cyst (Primary Dx) 04/07/2025 Results Follow-Up [address] [address] Nitin Weller CNM Bacterial Vaginosis, Yeast and Trich, US Pelvis Transvaginal, Pap Smear 04/07/2025 Orders Only [address] [address] Nitin Weller CNM 04/06/2025 11:00 AM EDT Procedure Visit [address] [address] Nitin Weller CNM Irregular menses (Primary Dx); Cervical cancer screening; Vaginal itching; History of ovarian cyst; Urge incontinence 04/06/2025 Travel 04/05/[address] [address] Nitin Weller CNM chart prep 03/02/[address] [address] Taylor Child MD Referral 03/02/[address] [address] Taylor Child MD Durable Medical Equipment 02/26/2025 Orders Only [address] [address] Carol Kohler RN 02/24/[address] [facility] PEDIATRICS [address] [place] [phone] Taylor Child MD stable lab letter 02/23/2025 10:30 AM EDT Office Visit [address] [address] Nitin Weller CNM Irregular menses (Primary Dx) 02/23/2025 Results Follow-Up [address] [place] [address] Taylor Child MD Lipid Panel, Standard, Comprehensive Metabolic Panel, TSH W/Reflex to FT4, Hemoglobin A1c 02/23/2025 Travel 02/22/[address] [facility] MEDICINE [address] [place] [address] Taylor Child MD Nurse Triage from Last 3 Months Immunizations Immunization Administration [...] Years (1 of 2 - PCV) 10/26/2018 COVID-19 Vaccine (3 - season) 2025 03/22/2021, 03/01/2021 Influenza Vaccine (#1) 2025 , 09/13/2016, 09/16/2015, Additional history exists SDOH Screening 01/28/2026 01/28/2025 Alcohol/Substance Use Screening 02/08/2026 02/08/2025 Depression Screening 02/08/2026 02/08/2025, 02/09/20 25 Tobacco Screening 02/23/2026 02/23/2025 Disability Screening 04/06/2026 04/06/2025 Family Planning (PISQ) 04/06/2026 04/06/2025 Pap Smear 04/06/2028 04/06/2025, 04/29, 12/05/2020 Lipid Panel 02/23/2030 02/23/2025 DTaP/Tdap/Td Vaccines (7 [...] Procedure Name Priority Date/Time Associated Diagnosis Comments US PELVIS TRANSVAGINAL Routine 5 2:15 PM EDT Right ovarian cyst US PELVIS TRANSVAGINAL Urgent 5 11:16 AM EDT Irregular menses History of ovarian cyst BACTERIAL VAGINOSIS PANEL Routine 04/06/2025 11:31 AM EDT Vaginal itching PAP SMEAR Routine 04/06/2025 11:30 AM EDT Cervical cancer screening POCT , URINE Routine 02/23/2025 11:10 AM [...] ([place] DPH) Routine 02/23/2025 HEPATITIS C ANTIBODY ([place] DP) Routine 02/23/2025 HIV ANTIBODY/ANTIGEN ([place] DP) Routine 02/23/2025 CHLAMYDIA/GONORRHEA THROAT SWAB ([place] DP) Routine 02/23/2025 CHLAMYDIA/GONORRHEA VAGINAL SWAB ([place] DP) Routine 02/23/2025 from Last 3 Months Results * US Pelvis Transvaginal (05/17/2025 2:15 PM EDT) Only the most recent of2 resultswithin the time period is included. Anatomical Region Laterality Modality Pelvis Ultrasound 05/17/2025 2:15 PM EDT Narrative 05/17/2025 2:56 PM EDT [place] [address] Ultrasound Report Signed Patient: Loulou Carvalho MR#: [id number] : 2000 Acct:[id number] Age/Sex: 24 / F ADM Date: 05/17/25 Loc: .[place] Attending Dr: Nitin Weller CNM Ordering Physician: NITIN WELLER CNM Date of Service: 05/17/25 Procedure(s): US pelvic and transvaginal Accession Number(s): [id number] cc: Taylor Child; NITIN WELLER CNM Reason for Exam: f/u right ovarian cyst, due in 6wks EXAMINATION: US PELVIS CLINICAL INFORMATION: Follow-up 3.9 cm right ovarian cyst. COMPARISON: April 08, 2025. TECHNIQUE: Ultrasound of the pelvis is performed using both transabdominal and transvaginal transducers along with Doppler. Transvaginal imaging is performed due to inadequate visualization transabdominally. FINDINGS: Uterus: The uterus is anteversion flexion and measures 9 x 5 x 6 cm. Volume: 132 cc. The double wall endometrial thickness is 17 mm. The uterus is smooth in contour and has normal myometrial echogenicity. No visible fibroid. Adnexa: The ovaries are identified with with flow on color Doppler interrogation. There is no pelvic ascites or fluid collection. Right ovary measures 3 x 2 x 2 cm. Volume: 7 cc. No solid or cystic lesion. Left ovary measures 3 x 3 x 2 cm. Volume: 12 cc. No solid or cystic lesion. Scattered follicles. US/US pelvic and transvaginal IMPRESSION: Resolved ovarian cyst. No ovarian torsion. Normal ovaries. Thickened, 17 mm endometrial stripe. Electronically signed by: Parmjit Lord MD 05/17/2025 02:53 PM EDT RP Dictated By: Parmjit Benavidez MD Signed By: <Electronically signed by Parmjit Nava MD in [place]> 05/17/25 1453 DD/ 1415 TD/TT: 05/17/25 1440 Phone Triage Specialist: Procedure Note Donotuseinterpreter, Image - 05/17/2025 [place] [address] Ultrasound Report Signed Patient: Chuck Carvalho#: [id number] : 2000Acct:[id number] Age/Sex: 24 / FADM Date: 05/17/25 Loc: .[place] Attending Dr: Nitin Weller CNM Ordering Physician: NITIN WELLER CNM Date of Service: 05/17/25 Procedure(s): US pelvic and transvaginal Accession Number(s): [id number] cc: Taylor Child; NITIN WELLER CNM Reason for Exam: f/u right ovarian cyst, due in 6wks EXAMINATION: US PELVIS CLINICAL INFORMATION: Follow-up 3.9 cm right ovarian cyst. COMPARISON: April 08, 2025. TECHNIQUE: Ultrasound of the pelvis is performed using both transabdominal and transvaginal transducers along with Doppler. Transvaginal imaging is performed due to inadequate visualization transabdominally. FINDINGS: Uterus: The uterus is anteversion flexion and measures 9 x 5 x 6 cm. Volume: 132 cc. The double wall endometrial thickness is 17 mm. The uterus is smooth in contour and has normal myometrial echogenicity. No visible fibroid. Adnexa: The ovaries are identified with with flow on color Doppler interrogation. There is no pelvic ascites or fluid collection. Right ovary measures 3 x 2 x 2 cm. Volume: 7 cc. No solid or cystic lesion. Left ovary measures 3 x 3 x 2 cm. Volume: 12 cc. No solid or cystic lesion. Scattered follicles. US/US pelvic and transvaginal IMPRESSION: Resolved ovarian cyst. No ovarian torsion. Normal ovaries. Thickened, 17 mm endometrial stripe. Electronically signed by: Parmjit Lord MD 05/17/2025 02:53 PM EDT Dictated By: Parmjit Benavidez MD Signed By: <Electronically signed by Parmjit Nava MDin OV> 05/17/25 1453 DD/ 1415 TD/TT: 05/17/25 1440 Phone Triage Specialist: us Nitin FARMER IM US PROCEDURES Edited Result - Final * (ABNORMAL) Bacterial Vaginosis, Yeast and Trich (04/06/2025 11:31 AM EDT) TRICHOMONAS VAGINALIS DETECTION BY PCR NOT DETECTED Not Detect [facility] BACTERIAL VAGINOSIS DETECTION BY PCR NEGATIVE Negative [facility] Comment:The BV organism targ ets [...] GROUP DETECTION BY PCR DETECTED(A) Not Detect [facility] Rossy glab krusei PCR NOT DETECTED Not Detect [facility] Swab Vaginal structure / Unknown 04/06/2025 11:31 AM EDT 04/06/2025 4:23 PM EDT Nitin Weller CNM LAB MICROBIOLOGY - GENERA L ORDERABLES Final Result [facility] [address] [place] [phone] * Pap Smear (04/06/2025 11:30 AM EDT) Swab Cervix uteri structure / Unknown 04/06/2025 11:30 AM EDT 04/07/2025 11:19 AM EDT Narrative [facility] - 04/12/2025 1:47 PM EDT ----- ------- Name: Odin GarciaLoulou Age/Sex: 24/F : 2000 Unit#: [id number] Attend Dr: NITIN WELLER CNM Re04/07/25 Status: DEP REF Location: HO.LNP Disch: ----- ------- SPEC : [id number] RECD: 04/07/25 STATUS: APOLONIA AGUILERA NUM: [id number] JUSTIN: 04/06/25-[address]: NITIN WELLER CNM ENTERED: 04/07/25 SP TYPE: Pap Smr OTHR DR: ORDERED: Pap Smear Interpretation Satisfactory for evaluation. Negative for intraepithelial lesion or malignancy. No endocervical cells seen. Moderate inflammation. Clinical Information LMP: Unknown date Previous PAP test: 04/2021, WNL Other history: Cervical cancer screening Material Received ThinPrep-Cervical PAP Disclaimer As of May 20, 2024, the technical services to include automated prescreening performed by the ThinPrep Imaging System, PAP screening and HPV testing will be performed at (CLIA #[id number]), [address] [place] [address]. Testing for HPV was performed using the [employer] system. The presence of HPV in the female genital tract is associated with a number of diseases, including cervical carcinoma. The HPV DNA high risk pool tests for HPV 31, 33, 35, 39, 45, 51, 52, 56, 58, 59, 66 and 68. The testing for HPV 16 and 18 genotypes has also been performed. A positive result indicates detection of nucleic acid sequences from one or more subtypes, whereas a negative result indicates such sequences were not detected. All professional services are performed by [facility] ([address] [place] [address]; ; CLIA #[id number]). The PAP Test is a screening procedure with the inherent possibility of both false negative and false positive results. Results should be interpreted in the context of historic and current clinical findings. Reliability of the PAP Test is enhanced by performing the test on a regular repetitive basis. ----- ------- Signed (signature on file) GUSTAVO Cullen (ASC) 04/12/25 1347 ----- ------- END OF REPORT Nitni Weller [facility] CYTOLOGY ORDERABLES F inal Result Performing Organization Address [facility]/ZIP Co de Phone Number [facility] [address] [place] [address] [phone] * POCT , urine manually resulted (02/23/2025 11:10 AM EDT) Preg Test, Ur Negative Negative, Indeterminate, None Detected, Invalid, Specimen unsatisfactory for evaluation, Weakly Positive, 2+ QC Media Lot # [id number] Lot# Expiration Date [id number] Urine 02/23/2025 11:1 0 AM EDT Nitin Weller [facility] POINT OF CARE TEST ENTER/ EDIT ORDERABLES Final Result * TSH W/Reflex to FT4 (02/23/2025 10:05 AM EDT) Pathologist [facility] TSH reflex Free T4 2.02 0.32 - 4.0 uIU/mL [facility] Blood Venous blood specimen / Unknown 02/23/2025 10:05 AM EDT 02/23/2025 11:08 AM EDT Taylor Child MD LAB BLOOD ORDERABLES Final Res ult Performing Organization Address [facility]/ZIP Co de Phone Number [facility] [address] [place] [phone] * hCG, Total, Quantitative (02/23/2025 10:05 AM EDT) HCG Quantitative <2 mIU/mL [facility] Comment:Weeks post LMP Appro ximate hCG(Last Menstrual Period) Range (mIU/ml)3 - 4 weeks 9 - 1304 - 5 weeks 75 - 2,6005 - 6 weeks 850 - 20,8006 - 7 weeks 4000 - 100,2007 - 12 weeks 11,500 - 289,31600 - 16 weeks 18,300 - 137,07597 - 29 weeks (2nd trimester) 1,400 - 53,03373 - 41 weeks (3rd trimester) 940 - [...] EDT 02/23/2025 11:49 AM EDT Deric Perez CNP LAB BLOOD ORDERABLES Nury l Result Performing Organization Address [facility] de Phone Number [facility] [address] [place] [phone] * Hemoglobin A1c (02/23/2025 10:05 AM EDT) Hemoglobin A1c 4.7 <6.0 % [facility] Comment:Hemoglobin A1C Refer ence Range Adults: 4.8 - 6.0 % Non diabetic: < 6.0 % Goal: < 7.0 %Additional Action Suggested: > 8.0 %Note: Hemoglobin A1c results are invalid for patients with abnormal amounts of HbF. Blood transfusions may impact the HbA1c concentration in the patient sample. Estimated Average Glucose 88 mg/dL [facility] Comment:eAG = Estimated ave rage glucose which is %A1C expressed asaverage glucose, using the formula of the G5L-PhwnrwsIkycqve Glucose study (ADAG), Diabetes Care, Vol.31,#8,Feb. 2007 Blood Venous blood specimen / Unknown 02/23/2025 10:05 AM EDT 02/23/2025 11:08 AM EDT Taylor Child MD LAB BLOOD ORDERABLES Final Res ult Performing Organization Address [facility] Co de Phone Number [facility] [address] [place] [phone] * (ABNORMAL) Lipid Panel, Standard (02/23/2025 10:05 AM EDT) Triglycerides 132 <150 mg/dL [facility] Comment:Desirable Triglyceri de: less than 150 mg/dLBorderline High Triglyceride 150-199 mg/dLHigh Triglyceride: 200-499 mg/dLVery High Triglyceride: greater than or equal to 5OO mg/dL Cholesterol 195 <200 mg/dL [facility] Comment:Desirable Cholestero l: less than 200 mg/dLBorderline High Cholesterol: 200-239 mg/dLHigh Cholesterol: greater than 239 mg/dL LDL Cholesterol Calculated 135(H) <100 mg/dL [facility] Comment:Desirable LDL: less than 100 mg/dLNear Optimal/Above Optimal LDL: 110- 129 mg/dLBorderline High LDL: 130-159 mg/dLHigh LDL: 160-189 mg/dLVery High LDL: greater than or equal to 190 mg/dL HDL Cholesterol 34(L) >40 mg/dL [facility] Comment:Desirable HDL: great er than 40 mg/dL Note: This HDL assay may give artificially low results in patients with liver disease. Blood Venous blood specimen / Unknown 02/23/2025 10:05 AM EDT 02/23/2025 11:08 AM EDT us Taylor Child MD LAB BLOOD ORDERABLES Final Res ult [facility] [address] [place] [phone] * Comprehensive Metabolic Panel (02/23/2025 10:05 AM EDT) Sodium 143 135 - 145 mmol/L [facility] Potassium 3.9 3.3 - 5.1 mmol/L [facility] Chloride 108 96 - 108 mmol/L [facility] Carbon Dioxide 26 22 - 29 mmol/L [facility] Anion Gap 13 12 - 20 [facility] Urea Nitrogen (BUN) 11 9 - 16 mg/dL [facility] Creatinine, Serum 0.62 0.5 - 1.4 mg/dL [facility] Estimated Glomerular Filt Rate >60 [facility] Comment:Chronic Kidney Disea se: Estimated GFR < 60 mL/min/1.38i2Ypktgh Kidney Disease: Estimated GFR < 15 mL/min/1.73m2 Glucose 93 60 - 115 mg/dL [facility] Calcium 9.1 8.4 - 10.2 mg/dL [facility] Bilirubin, Total 0.5 0.0 - 1.0 mg/dL [facility] Aspartate Amino Transferase 18 5 - 31 U/L [facility] Alanine Aminotransferase 11 0 - 31 U/L [facility] Total Protein 7.1 6.5 - 8.0 g/dL [facility] Albumin Level 4.4 3.5 - 5.0 g/dL [facility] Alkaline Phosphatase 84 39 - 117 U/L [facility] Blood Venous blood specimen / Unknown 02/23/2025 10:05 AM EDT 02/23/2025 11:08 AM EDT Taylor Child MD LAB BLOOD ORDERABLES Final Res ult [facility] [address] [place] [phone] * Chlamydia/Gonorrhea Vaginal Swab ([facility]) (02/23/2025) Chlamydia Vaginal Swab Negative Negative, Indeterminate, None Detected, Invalid, Specimen unsatisfactory for evaluation, Weakly Positive, 2+ Gonorrhea Vaginal Swab Negative Negative, Indeterminate, None Detected, Invalid, Specimen unsatisfactory for evaluation, Weakly Positive, 2+ Swab Vaginal structure / Unknown 02/23/2025 Fred Castaneda MD LAB MICROBIOLOGY - GENERA L ORDERABLES Final Result * Chlamydia/Gonorrhea Throat Swab ([facility]) (02/23/2025) Chlamydia Throat Swab Negative Gonorrhea Throat Swab Negative Swab 02/23/2025 [facility] Provider LAB MICROBIOLOGY - GENERA L ORDERABLES Final Result * Syphilis Antibodies ([facility]) (02/23/2025) Syphilis Abs Nonreactive Borderline, Nonreactive, Weakly Reactive, Inconclusive, Specimen unsatisfactory for evaluation Blood Venous blood specimen / Unknown 02/23/2025 [facility] Provider MD LAB BLOOD ORDERABLES Edit ed Result - Final * Hepatitis C Antibody ([place] [facility]) (02/23/2025) Pathologist [facility] Hepatitis C Ab Nonreactive Blood 02/23/2025 [facility] Provider MD LAB BLOOD ORDERABLES Nury l Result * HIV Ab/Ag ([facility]) (02/23/2025) Pathologist [facility] HIV Ag/Ab Nonreactive Blood 02/23/2025 Result [facility] Provider MD LAB BLOOD ORDERABLES Nury l Result from Last 3 Months Insurance * Guarantor: Loulou Carvalho Account Type Relation to Patient Date of Phone Billing Address Personal/Family Self 2000 [address] [facility] [address] [place] [address] [facility] C3 Care Teams Seaming Inspector Relationship Specialty Start Date End Date Taylor Child MD [address] [place] [phone] PCP - General Family Medicine 04/12/20
--- OUTSIDE RECORDS SUMMARY | 2025-05-17 16:17 | XMS_ITS | Encounter Summary ---
Author Organization [employer] Address [address] [facility] 7 [place] [address] Care Team Providers Care Product Development Consultant Name Role Phone Taylor Child MD Primary Care Provider [phone] Reason for Visit * Reason Onset Date Comments triage 11/01/2022 Encounter Details Date Type Department Care Team ([facility] st Contact Info) Description 11/01/2022 Telephone [facility] MEDICINE [address] [place], [place] [phone] Taylor Child MD [address] [place] [address] triage Social History Tobacco Use Types Packs/Day [...] 11/01/2022 11:17 AM EDT Triage call with [place] [address] [place] [id number] Pt reports vaginal discharge which started last [...] a vaginal yeast infection (i.e., white, thick, wupnwxm-jedrug-qpiq, itchy, not bad smelling discharge) * All [...] occur - You become worse Vaginal Discharge (English) handout sent to [phone] * Telephone Encounter - Josee Johnson - [...] on filedocumented in this encounter Care Teams Product Development Consultant Relationship Specialty Start Date End Date Taylor Child MD [address] [place] [phone] PCP - General Family Medicine 04/12/20 documented as of this encounter
--- OUTSIDE RECORDS SUMMARY | 2025-05-17 16:18 | XMS_ITS | Encounter Summary ---
Author Organization [employer] [facility] Address [address] [place] [address] 7 [place] [address] Care Team Providers Care Payroll Analyst Name Role Phone Taylor Child MD Primary Care Provider [phone] Encounter Details Date Type Department Care Team ([facility] st Contact Info) Description 04/23/2023 Orders Only [facility] MEDICINE [address] [place], [place] [phone] Provider, MD Fred Social History Tobacco Use [...] on filedocumented in this encounter Care Teams Payroll Analyst Relationship Specialty Start Date End Date Taylor Child MD [address] [place], [place] [phone] PCP - General Family Medicine 04/12/20 documented as of this encounter
== END 2025-05-17 13:18 | disposition home or self-care (01) ==
LOC: HO.US 13:17
PROVIDERS: PCP General Practice; Visit Provider Advanced Practice Midwife
DX: N83.201 Unspecified ovarian cyst, right side (principal)
CPT/HCPCS: 76830; 76856

== ENCOUNTER → 2025-05-17 13:21 | Outpatient (BNV) | payer MEDICAID, SELFPAY | PROVIDERS: PCP General Practice; Visit Provider Radiology Diagnostic Radiology | DX: N83.201 Unspecified ovarian cyst, right side (principal) | CPT/HCPCS: 76830; 76856 ==

== ENCOUNTER 2025-07-13 15:17 | Emergency (ER) | payer MEDICAID, SELFPAY ==
--- NOTE | ~2025-07-13 | CT_ITS ---
CLINICAL HISTORY: flank pain. kidney stones CT abdomen and pelvis without contrast Comparison: None provided Findings: Hiatal hernia. Left renal lower pole 4mm non obstructing nephrolith. Hepatomegaly 18.3cm No bowel obstruction, pneumoperitoneum, or pneumatosis. The appendix is within normal limits. The bones are intact. IMPRESSION: 1. Hepatomegaly, measuring 18.3 cm. 2. Left renal lower pole 4 mm non-obstructing nephrolith. 3. Hiatal hernia. 4. No acute intraabdominal or pelvic pathology. This document has been electronically signed by: Derek Chavez MD on 07/13/2025 19:30:52
[2025-07-13 16:37] VITALS: BP 137/54; PULSE 118; RESP 18; TEMP 36.6; O2SAT 98; BMI 35.6
--- NOTE | 2025-07-13 17:05 | ED.GENADULT ---
HPI - General Adult General Chief complaint: Abdominal Pain Stated complaint: left side pain Time Seen by Provider: 07/13/25 21:14 History of Present Illness ED Provider: Donya Vences NP HPI narrative: 24-year-old female medical history significant for gestational diabetes, history of preeclampsia, not currently presenting to the ED for evaluation of bilateral flank pain ongoing for about 4 days. Patient reports that she has a history of kidney stones in the past, and last time this felt similar. Nursing some nausea with vomiting due to pain. Pain has localized now to the left flank, does not radiate into the groin. Denies dysuria, hematuria, urgency or frequency. Endorsing subjective fever, chills at home. No objective fever. No chest pain or pressure, shortness of breath. Related Data Home Medications ?Medication ?Instructions ?Recorded ?Confirmed aspirin 81 mg tablet,delayed 81 mg PO DAILY 10/12/21 10/12/21 release (Adult Aspirin Regimen) Previous Rx's ?Medication ?Instructions ?Recorded vitamins with calcium 1 tab PO DAILY #30 tabs 04/19/21 no.72-iron 27 mg-folic acid 1 mg tablet ( Vitamins Plus Low Iron) peak flow meter #1 ea 08/09/21 ferrous sulfate 325 mg (65 mg 325 mg PO DAILY #30 tabs 09/21/21 iron) tablet blood sugar diagnostic (FreeStyle #100 ea 09/25/21 Lite Strips) blood-glucose meter (FreeStyle #1 ea 09/25/21 Lite Meter kit) lancets 28 gauge (FreeStyle #100 ea 09/25/21 Lancets) acetaminophen 500 mg tablet 1,000 mg (2 x 500 mg) PO Q8H PRN 07/13/25 fever or pain 7 days #30 tabs ibuprofen 600 mg tablet 600 mg PO Q8H PRN fever or pain 7 07/13/25 days #20 tabs nitrofurantoin 100 mg PO Q12H 5 days #10 caps 07/13/25 monohydrate/macrocrystals 100 mg capsule (Macrobid) ondansetron 4 mg disintegrating 4 mg PO Q8H PRN nausea and 07/13/25 tablet vomiting #14 tabs tamsulosin 0.4 mg capsule 0.4 mg PO DAILY 14 days #14 caps 07/13/25 Allergies Allergy/AdvReac Type Severity Reaction Status Date / Time No Known Allergies (No Known Allergy Verified 07/13/25 16:40 Allergies*) Review of Systems Review of Systems: ROS is otherwise negative unless mentioned in HPI. [facility] Past Medical History Medical History Abnormal glucose affecting Asthma No acute medical problems Obesity (BMI 30-39.9) Surgical History No history of previous surgery Family History Family History Mother Diabetes mellitus HTN (hypertension) History of pre-eclampsia Father HTN (hypertension) Hypercholesteremia Kidney disease Paternal Grandmother History of breast cancer in female Social History Social History Household Members: Significant Other and Family Housing: Apartment Are you a primary critical care physician to a significant other at home: No Do you presently have visiting nurse or other home services: No Alcohol intake: never Patient Tobacco Use Status: Never used Tobacco Agree to transfusion: Yes Advance Directives: No Advance Directives Information Provided: No Do you have a plan to hurt others: No Plan service: No Current occupational status: unemployed Sexual orientation: Straight/Heterosexual Gender identity: Female Physical Exam ED Exam Exam: Nursing notes and vital signs reviewed. Constitutional: Well-appearing, NAD. Alert. Oriented X3. Eyes: EOMI. ENT: Pharynx normal. Neck: Normal inspection. Neck supple. CVS: Normal heart rate and rhythm. Pulses normal. Respiratory: No respiratory distress. Breath sounds normal. Abdomen: Soft, nontender, nondistended. Left-sided CVA tenderness. Skin: Skin warm and dry. Normal skin color. Extremities: No lower extremity edema. Neuro: Oriented X 3. No motor deficit. Vital Signs: Vital Signs - 24 hr 07/13/25 16:37 07/13/25 21:35 07/14/25 00:11 Temperature 98 F 98.2 F 97.7 F Pulse Rate 118 H 110 H 108 H Respiratory Rate 18 16 16 Blood Pressure 137/54 L 117/78 96/55 L Pulse Oximetry 98 98 97 Oxygen Delivery Method Room Air Room Air BMI result Body Mass Index 35.6 Course Course Course Narrative: RME: 24-year-old female history of kidney stone presents to ED for flank pain with nausea for the past 4 days. Labs ordered Medications Administered Discontinued Medications Generic Name Dose Route Start Last Admin Trade Name Kristine PRN Reason Stop Dose Admin Sodium Chloride 1,000 mls @ 999 mls/hr 07/13/25 22:03 07/13/25 22:24 Ns IV 07/13/25 23:03 999 mls/hr .Q1H1M ONE Administration Ceftriaxone Sodium 1 gm/ 50 mls @ 100 mls/hr 07/13/25 22:04 07/13/25 22:24 Sodium Chloride IV 07/13/25 22:33 100 mls/hr ONCE ONE Administration Ketorolac Tromethamine 15 mg 07/13/25 22:03 07/13/25 22:25 Ketorolac Tromethamine 15 Mg/Ml Vial IVPUSH 07/13/25 22:04 15 mg ONCE ONE Administration Ondansetron HCl 4 mg 07/13/25 22:03 07/13/25 22:25 Ondansetron Hcl 4 Mg/2 Ml Vial IVPUSH 07/13/25 22:04 4 mg ONCE ONE Administration Medical Decision Making Medical Decision Making MDM Narrative: 10:08 PM 07/13/2025 (Donya Vences NP): Upon my assessment, the patient overall appears well. She does have clear CVA tenderness to the left side, concerning for pyelonephritis versus stone. The CAT scan does show a nonobstructive stone of the left renal lower pole. It is nonobstructive, though it is possible to cause some discomfort. She has no leukocytosis on her lab work. Creatinine level 0.59, also not concerning. The urinalysis however shows moderate leuks and white cells, I gave her a dose of Rocephin. We will send a urine culture and follow up outpatient. Her workup has been completed by the triage provider, though plan to treat with Toradol, antiemetic, fluid bolus while in the ED and then discharged home with oral antiemetics and pain control, as well as Urology follow up. Patient is agreeable to this plan. 11:30 PM-- Reporting improvement. Plan to now proceed with discharge. She will need outpatient Urology follow up. She is agreeable to this plan. Differential Diagnosis Differential Diagnoses: The differential diagnosis associated with the presentation includes Pyelonephritis, renal stone, cystitis Admission/Observation Consideration of admission/observation: Escalation of care including admission/observation considered (Not indicated) Lab Data MDM Lab Attestation statement: I reviewed the patient's lab results. (Reassuring overall.) 07/13/25 17:26 07/13/25 17:26 Labs: Lab Results 07/13/25 Range/Units 17:26 WBC 9.9 (4.8-10.8) X10*3/uL RBC 3.91 L (4.20-5.50) X10*6/uL Hgb 11.7 L (12.0-16.0) g/dl Hct 35.9 L (37.0-47.0) % MCV 91.8 (80.0-98.0) fL MCH 29.9 (27.0-33.0) pg MCHC 32.6 (31.0-35.0) g/dl RDW 12.1 (11.0-16.0) % Plt Count 231 D (160-400) X10*3/uL MPV 11.4 (9.4-12.3) fL Immature Gran % (Auto) 0.4 (0.0-0.4) % Neut % (Auto) 61.4 (45-73) % Lymph % (Auto) 29.6 (20-40) % [place] % (Auto) 6.7 (2-11) % Eos % (Auto) 1.6 (0-4) % Baso % (Auto) 0.3 (0-2) % Lymph # (Auto) 2.9 (1.2-4.9) X10*3/uL [place] # (Auto) 0.7 (0.1-1.2) X10*3/uL Eos # (Auto) 0.2 (0.0-0.4) X10*3/uL Baso # (Auto) 0.0 (0.0-0.2) X10*3/uL Abs Immat Gran (auto) 0.04 H (0.00-0.03) X10*3/uL Absolute Neuts (auto) 6.1 (2.0-8.3) x10*3/uL Absolute Nucleated RBC 0.000 (0.0-0.012) X10*3/uL Nucleated RBC % (auto) 0.0 (0.0-0.2) /100WBC Sodium 138 (135-145) mmol/L Potassium 3.5 (3.3-5.1) mmol/L Chloride 102 (96-108) mmol/L Carbon Dioxide 27 (22-29) mmol/L Anion Gap 13 (12-20) BUN 10 (9-16) mg/dL Creatinine 0.59 (0.5-1.4) mg/dL Estim Creat Clear Calc 156.2 Estimated GFR > 60 Random Glucose 87 (60-115) mg/dL Calcium 9.6 (8.4-10.2) mg/dL Total Bilirubin 0.5 (0.0-1.0) mg/dL AST 30 (5-31) U/L ALT 21 (0-31) U/L Alkaline Phosphatase 107 (39-117) U/L Total Protein 8.0 (6.5-8.0) g/dL Albumin 4.7 (3.5-5.0) g/dL Beta HCG, Quant < 2 mIU/mL Urine Color Yellow Urine Appearance Cloudy Urine pH 5.5 (5.0-9.0) Ur Specific [place] 1.025 (1.005-1.025) Urine Protein Trace (Neg-Trace) mg/dL Urine Glucose (UA) Negative (Negative) mg/dL Urine Ketones 15 (Negative) mg/dL Urine Blood Negative (Negative) Urine Nitrite Negative (Negative) Ur Leukocyte Esterase Moderate (2+) H (Negative) Urine RBC 0-2 (0-2) /HPF Urine WBC 21-50 H (0-5) /HPF Ur Squamous Epith Cells 11-20 (0-2) /HPF Urine Bacteria None Seen (None Seen) Hyaline Casts 3-5 (0-2) /LPF Radiology Impression Discussion of test interpretation with radiology: I have reviewed the radiologist's reading. Radiologist Impression: IMPRESSION: 1. Hepatomegaly, measuring 18.3 cm. 2. Left renal lower pole 4 mm non-obstructing nephrolith. 3. Hiatal hernia. 4. No acute intraabdominal or pelvic pathology. Independent Historian None External Record Review None Chronic Conditions None Social Determinants Patient?s care significantly limited by Social Determinants of Health including: Problems related to primary support group Discharge Plan Discharge Clinical Impression: Kidney stone, Hepatomegaly UTI (urinary tract infection) Qualifiers: Urinary tract infection type: acute cystitis Hematuria presence: without hematuria Qualified Code(s): N30.00 - Acute cystitis without hematuria Patient Disposition: Home, Self-Care Instructions: Kidney Stones (ED), How to Strain Your Urine (ED), Hydronephrosis (ED) Additional Instructions: As we discussed, your workup today was overall reassuring. The urine sample however showed signs of infection. We gave you a dose of IV antibiotics while in the ED. I sent you prescriptions for oral antibiotics outpatient. Please call with a course of antibiotic as prescribed (Macrobid). Additionally, your lab work was reassuring. This included your kidney function test. Please follow up with Urology outpatient, as you have a kidney stone on the left side, the location of your pain. Please also discuss that liver is enlarged with your primary care provider. With any worsening complaints at any time, return back to the ED for additional assessment. Flomax-- to aid in urination. Zofran-for nausea Tylenol/Ibuprofen- for pain Macrobid- antibiotic for UTI Prescriptions: New acetaminophen 500 mg tablet 1,000 mg PO Q8H PRN (Reason: fever or pain) 7 Days Qty: 30 0RF tamsulosin 0.4 mg capsule 0.4 mg PO DAILY 14 Days Qty: 14 0RF ibuprofen 600 mg tablet 600 mg PO Q8H PRN (Reason: fever or pain) 7 Days Qty: 20 0RF ondansetron 4 mg tablet,disintegrating 4 mg PO Q8H PRN (Reason: nausea and vomiting) Qty: 14 0RF nitrofurantoin monohyd/m-cryst [Macrobid] 100 mg capsule 100 mg PO Q12H 5 Days Qty: 10 0RF Rx Instructions: must administer with a meal/food No Action ferrous sulfate 325 mg (65 mg iron) tablet 325 mg PO DAILY Qty: 30 5RF (DME) blood-glucose meter [FreeStyle Lite Meter] Kit See Rx Instructions miscellaneous .MEDSUPPLY Qty: 1 0RF Rx Instructions: As directed (DME) FreeStyle Lite Strips Strip See Rx Instructions .MEDSUPPLY Qty: 100 1RF Rx Instructions: QID (DME) lancets [FreeStyle Lancets] 28 gauge misc See Rx Instructions .MEDSUPPLY Qty: 100 1RF Rx Instructions: As directed QID Vitamin Plus Low Iron 27 mg iron- 1 mg tablet 1 tab PO DAILY Qty: 30 11RF (DME) peak flow meter Device See Rx Instructions .ROUTE .MEDSUPPLY Qty: 1 0RF Rx Instructions: As directed aspirin [Adult Aspirin Regimen] 81 mg tablet,delayed release (DR/EC) 81 mg PO DAILY Referrals: [facility] [place] [facility] [Provider Group, Urology] Taylor Child MD [Primary Care Provider, Internal Medicine] Stand Alone Forms: Work/School Release Discharge Date/Time: 07/13/25 23:58 Print Language: Mohawk
[2025-07-13 17:48] LABS: MANUAL DIFF FLAG NO
[2025-07-13 17:52] LABS: Appearance Urine Cloudy; Glucose Urine UA Negative (Negative); PH 5.5 (5.0-9.0); Specific Gravity - Urine 1.025 (1.005-1.025); UMIC TRIGGER UACC YES
[2025-07-13 18:11] LABS: Hematocrit 35.9 % (37.0-47.0); Hemoglobin 11.7 g/dl (12.0-16.0); Imm Gran Abs Auto 0.04 X10*3/uL (0.00-0.03); Imm Gran Pct Auto 0.4 % (0.0-0.4); Lymphocytes Absolute Auto 2.9 X10*3/uL (1.2-4.9); Mean Corpuscular HGB Conc 32.6 g/dl (31.0-35.0); Mean Corpuscular Hemoglobin 29.9 pg (27.0-33.0); Mean Corpuscular Volume 91.8 fL (80.0-98.0); NRBC Abs Auto 0.000 X10*3/uL (0.0-0.012); NRBC Pct Auto 0.0 /100WBC (0.0-0.2); Platelet Count 231 X10*3/uL (160-400); Red Blood Count 3.91 X10*6/uL (4.20-5.50); White Blood Count 9.9 X10*3/uL (4.8-10.8)
[2025-07-13 18:15] LABS: Alanine Aminotransferase 21 U/L (0-31); Albumin Level 4.7 g/dL (3.5-5.0); Alkaline Phosphatase 107 U/L (39-117); Anion Gap 13 (12-20); Aspartate Amino Transferase 30 U/L (5-31); Blood Urea Nitrogen 10 mg/dL (9-16); Calcium 9.6 mg/dL (8.4-10.2); Carbon Dioxide 27 mmol/L (22-29); Chloride 102 mmol/L (96-108); Creatinine Clr Calc Pharmacy 156.2; Estimated Glomerular Filt Rate > 60; Potassium 3.5 mmol/L (3.3-5.1); Sodium 138 mmol/L (135-145); Total Protein 8.0 g/dL (6.5-8.0)
[2025-07-13 18:18] LABS: UACC Culture Trigger YES
--- OUTSIDE RECORDS SUMMARY | 2025-07-13 21:15 | XMS_ITS | Encounter Summary ---
Author Organization [facility] Address [address] [facility] [address] [place] [address] Care Team Providers Care Marker Assembler Name Role Phone Taylor Child MD Primary Care Provider [phone] Encounter Details Date Type Department Care Team ([facility] Contact Info) Description 07/13/2025 Orders Only GENERIC EXTERNAL DATA DEPARTMENT Provider, Generic External Data Social History Tobacco Use Types Packs/Day Years [...] t he electric, gas, oil or water [employer] threatened to shut off services in your [...] as of this encounter Plan of Treatment Upcoming Encounters Date Type Department Care Team (Late st Contact Info) Description 09/06/2025 2:30 PM EST Office Visit [facility] [address], [place] [phone] Taylor Child MD [address] [place], [place] [phone] documented as of this encounter Procedures Procedure Name Priority Date/Time Associated Diagnosis Comments CT ABDOMEN PELVIS WO CONTRAST Routine 07/13/2025 7:30 PM EST URINALYSIS, COMPLETE, WITH REFLEX TO CULTURE Routine 07/13/2025 5:26 PM EST CBC WITH AUTO DIFFERENTIAL Routine 07/13/2025 5:26 PM EST HCG, TOTAL, QN Routine 07/13/2025 5:26 PM EST COMPREHENSIVE METABOLIC PANEL Routine 07/13/2025 5:26 PM EST documented in this encounter Results * CT Abdomen Pelvis w/o Contrast (07/13/2025 7:30 PM EST) Anatomical Region Laterality Modality Body, Pelvis, Abdomen Computed T omography 07/13/2025 7:30 PM EST Narrative 07/13/2025 7:33 PM EST [address] [address] [address] Scan Report Signed Patient: Loulou Carvalho MR#: [id number] : 2000 Acct:[id number] Age/Sex: 24 / F ADM Date: 07/13/25 Loc: HO.ED Attending Dr: Ordering Physician: Sergey Mijares Date of Service: 07/13/25 Procedure(s): CT abdomen pelvis wo IV con Accession Number(s): [id number] cc: Sergey Mijares; Taylor Child Report Number: [id number]: Total DLP = 566.00 mGy-cm Reason for Exam: flank pain. kidney stones CLINICAL HISTORY: flank pain. kidney stones CT abdomen and pelvis without contrast Comparison: None provided Findings: Hiatal hernia. Left renal lower pole 4mm non obstructing nephrolith. Hepatomegaly 18.3cm No bowel obstruction, pneumoperitoneum, or pneumatosis. The appendix is within normal limits. The bones are intact. IMPRESSION: 1. Hepatomegaly, measuring 18.3 cm. 2. Left renal lower pole 4 mm non-obstructing nephrolith. 3. Hiatal hernia. 4. No acute intraabdominal or pelvic pathology. This document has been electronically signed by: Derek Chavez MD on 07/13/2025 19:30:52 Dictated By: Derek Chavez MD Signed By: <Electronically signed by Derek Chavez MD in OV> 07/13/251930 DD/ 29 TD/TT: 07/13/251929 Powder Expert: Procedure Note Donotuseinterpreter, Image - 07/13/[address] [place] [address] [address] Scan Report Signed Patient: Kalie CarvalhoR#: [id number] : 2000Acct:[id number] Age/Sex: 24 / FADM Date: 07/13/25 Loc: .ED Attending Dr: Ordering Physician: Sergey Mijares Date of Service: 07/13/25 Procedure(s): CT abdomen pelvis wo IV con Accession Number(s): [id number] cc: Sergey Mijares; Taylor Child Report Number: [id number]: Total DLP = 566.00 mGy-cm Reason for Exam: flank pain. kidney stones CLINICAL HISTORY: flank pain. kidney stones CT abdomen and pelvis without contrast Comparison: None provided Findings: Hiatal hernia. Left renal lower pole 4mm non obstructing nephrolith. Hepatomegaly 18.3cm No bowel obstruction, pneumoperitoneum, or pneumatosis. The appendix is within normal limits. The bones are intact. IMPRESSION: 1. Hepatomegaly, measuring 18.3 cm. 2. Left renal lower pole 4 mm non-obstructing nephrolith. 3. Hiatal hernia. 4. No acute intraabdominal or pelvic pathology. This document has been electronically signed by: Derek Chavez MD on 07/13/2025 19:30:52 Dictated By: Derek Chavez MD Signed By: <Electronically signed by Derek Chavez MD in OV> 07/13/251930 DD/ 29 TD/TT: 07/13/251929 Powder Expert: [facility] External Provider IMG CT PROCEDURES Edited Result - Final * hCG, Total, Quantitative (07/13/2025 5:26 PM EST) HCG Quantitative <2 mIU/mL [facility] Comment:Weeks post LMP Appro ximate hCG(Last Menstrual Period) Range (mIU/ml)3 - 4 weeks 9 - 1304 - 5 weeks 75 - 2,6005 - 6 weeks 850 - 20,8006 - 7 weeks 4000 - 100,2007 - 12 weeks 11,500 - 289,77632 - 16 weeks 18,300 - 137,41195 - 29 weeks (2nd trimester) 1,400 - 53,62148 - 41 weeks (3rd trimester) 940 - 60,000The Isaacs B- hCG assay is used for the early detection ofpregnancy; it cannot be used to diagnose any conditionunrelated to . If a B-hCG level is not supportedby the clinical evidence, results should be confirmed by analternative method (qualitative urine hCG, for example). 07/13/2025 5:26 PM EST 07/13/2025 5:47 PM EST us Generic External Data Provider LAB BLOOD ORDERAB LES Final Result [facility] [address] [place] [address] [phone] * Comprehensive Metabolic Panel (07/13/2025 5:26 PM EST) Sodium 138 135 - 145 mmol/L [facility] Potassium 3.5 3.3 - 5.1 mmol/L [facility] Chloride 102 96 - 108 mmol/L [facility] Carbon Dioxide 27 22 - 29 mmol/L [facility] Anion Gap 13 12 - 20 [facility] Urea Nitrogen (BUN) 10 9 - 16 mg/dL [facility] Creatinine, Serum 0.59 0.5 - 1.4 mg/dL [facility] Creatinine Clr Calc Pharmacy 156.2 [facility] Comment:Provided height and weight: 160.02 cm,91.172 kg.eGFR (calculated from the MDRD study equation) and eCrCl(calculated from the Cockcroft-Gault equation) are based ondifferent parameters and may not yield comparable results.If eCrCl result is absurd, please check patient'sheight/weight. Estimated Glomerular Filt Rate >60 [facility] Comment:Chronic Kidney Disea se: Estimated GFR < 60 mL/min/1.84i8Wptmpb Kidney Disease: Estimated GFR < 15 mL/min/1.73m2 Glucose 87 60 - 115 mg/dL [facility] Calcium 9.6 8.4 - 10.2 mg/dL [facility] Bilirubin, Total 0.5 0.0 - 1.0 mg/dL [facility] Aspartate Amino Transferase 30 5 - 31 U/L [facility] Alanine Aminotransferase 21 0 - 31 U/L [facility] Total Protein 8.0 6.5 - 8.0 g/dL [facility] Albumin Level 4.7 3.5 - 5.0 g/dL [facility] Alkaline Phosphatase 107 39 - 117 U/L [facility] 07/13/2025 5:26 PM EST 07/13/2025 5:47 PM EST us Generic External Data Provider LAB BLOOD ORDERAB LES Final Result [facility] [address] [place] [address] [phone] * (ABNORMAL) CBC auto differential (07/13/2025 5:26 PM EST) White Blood Count 9.9 4.8 - 10.8 X10*3/uL [facility] Red Blood Count 3.91(L) 4.20 - 5.50 X10*6/uL [facility] Hemoglobin 11.7(L) 12.0 - 16.0 g/dl [facility] Hematocrit 35.9(L) 37.0 - 47.0 % [facility] Mean Corpuscular Volume 91.8 80.0 - 98.0 fL [facility] Mean Corpuscular Hemoglobin 29.9 27.0 - 33.0 pg [facility] Mean Corpuscular HGB Conc 32.6 31.0 - 35.0 g/dl [facility] Red Cell Distribution Width 12.1 11.0 - 16.0 % [facility] Platelet Count 231 160 - 400 X10*3/uL [facility] Mean Platelet Volume 11.4 9.4 - 12.3 fL [facility] Neutrophils Percent Auto 61.4 45 - 73 % [facility] Imm Gran Pct Auto 0.4 0.0 - 0.4 % [facility] Lymphocytes Percent Auto 29.6 20 - 40 % [facility] Monocytes Percent Auto 6.7 2 - 11 % [facility] Eosinophils Percent Auto 1.6 0 - 4 % [facility] Basophils Percent Auto 0.3 0 - 2 % [facility] NRBC Pct Auto 0.0 0.0 - 0.2 /100WBC [facility] Neutrophils Absolute Auto 6.1 2.0 - 8.3 x10*3/uL [facility] Imm Gran Abs Auto 0.04(H) 0.00 - 0.03 X10*3/uL [facility] Lymphocytes Absolute Auto 2.9 1.2 - 4.9 X10*3/uL [facility] Monocytes Absolute Auto 0.7 0.1 - 1.2 X10*3/uL [facility] Eosinophils Absolute Auto 0.2 0.0 - 0.4 X10*3/uL [facility] Basophils Absolute Auto 0.0 0.0 - 0.2 X10*3/uL [facility] NRBC Abs Auto 0.000 0.0 - 0.012 X10*3/uL [facility] 07/13/2025 5:26 PM EST 07/13/2025 5:47 PM EST us Generic External Data Provider LAB BLOOD ORDERAB LES Final Result [facility] [address] [place] [phone] * (ABNORMAL) Urinalysis, Complete, with Reflex to Culture (07/13/2025 5:26 PM EST) Color Urine Yellow [facility] Appearance Urine Cloudy [facility] PH 5.5 5.0 - 9.0 [facility] Glucose Urine UA Negative Negative mg/dL [facility] Urine Blood Negative Negative [facility] Specific [place] - Urine 1.025 1.005 - 1.025 [facility] Urine Protein Trace Neg-Trace mg/dL [facility] Urine Ketones 15 Negative mg/dL [facility] Nitrite Urine Negative Negative [facility] Leukocyte Esterase Urine Moderate (2+)(A) Negative [facility] RBC Urine 0-2 0 - 2 /HPF [facility] Urine WBC 21-50(A) 0 - 5 /HPF [facility] Urine Squamous Epithelial Cell 11-20 0 - 2 /HPF [facility] Urine Bacteria None Seen None Seen [facility] Hyaline Casts, Urine 3-5 0 - 2 /LPF [facility] 07/13/2025 5:26 PM EST 07/13/2025 5:47 PM EST Narrative [facility] - 07/13/2025 6:19 PM EST [id number], Clean Catch us Generic External Data Provider LAB URINE ORDERAB LES Final Result Performing Organization Address City/State/[facility] Co de Phone Number [facility] [address] [place] [address] [phone] documented in this encounter Visit Diagnoses Not on filedocumented in this encounter Additional Health Concerns Assessment Noted Time PHQ-9 Depression Total Score: 0 02/09/20 25 4:17 PM EDT documented as of this encounter Care Teams Marker Assembler Relationship Specialty Start Date End Date Taylor Child MD [address] [place] [phone] PCP - General Family Medicine 04/12/20 documented as of this encounter
--- OUTSIDE RECORDS SUMMARY | 2025-07-13 21:15 | XMS_ITS | Encounter Summary ---
Author Organization [facility] Address [address] [place] [address] 7 [place] [address] Care Team Providers Care Advertising Supervisor Name Role Phone Taylor Child MD Primary Care Provider [phone] Encounter Details Date Type Department Care Team (Late Contact Info) Description 04/23/2023 Orders Only [facility] [address] [place] [address] [phone] Provider, MD Fred Social History Tobacco Use [...] Description 09/06/2025 2:30 PM EST Office Visit [facility] [address] [place] [phone] Taylor Child MD [address] [place] [address] [phone] documented as of this encounter Procedures Procedure Name Priority Date/Time Associated Diagnosis Comments HM PAP/HPV Routine 05/22/2021 documented in this encounter Results * Hm Pap Smear (05/22/2021) Historical Provider HEALTH MAINTENANCE Final Result documented in this encounter Visit Diagnoses Not on filedocumented in this encounter Care Teams Advertising Supervisor Relationship Specialty Start Date End Date Taylor Child MD [address] [place] [address] PCP - General Family Medicine 04/12/20 documented as of this encounter
--- OUTSIDE RECORDS SUMMARY | 2025-07-13 21:15 | XMS_ITS | Encounter Summary ---
Author Organization [employer] Address [address] [facility] 7 [place] [address] Care Team Providers Care Rv Mechanic Name Role Phone Taylor Child MD Primary Care Provider [phone] Reason for Referral * Consultation (Routine) - Canceled Specialty Diagnoses / Procedures Referred By Rashad qureshi Referred To Contact Plastic Surgery Diagnoses Large breasts Mass of left breast, unspecified quadrant Neck pain Taylor Child MD [address] [place] [address] Phone: tel: fax: [facility] Plastic Surgery [address] [place] [address] Drive [address] [place], [place] Phone: tel: fax: Referral ID Status Reason Start Date Expiration Date Visits Requested Visits Authorized [id number] Canceled Specialty Services Required 12/20/2023 12/19/2024 1 1 Encounter Details Date Type Department Care Team (Late st Contact Info) Description 12/20/2023 Orders Only [facility] [address] [place], [place] [phone] Taylor Child MD [address] [place], [place] [phone] Large breasts (Primary Dx); Mass of left [...] Description 09/06/2025 2:30 PM EST Office Visit [facility] [address] [place] [phone] Taylor Child MD [address] [place] [address] Scheduled Referrals Name Type Priority Associated Diagnoses Orde r Schedule Referral to Plastic Surgery Outpatient Referral Routine Large breasts Mass of left breast, unspecified quadrant Neck pain Expected: 12/20/2023 (Approximate), Expires: 12/19/2024 documented as of this encounter Visit Diagnoses Diagnosis Large breasts- Primary Hypertrophy of breast Mass of left breast, unspecified quadrant Neck pain Cervicalgia documented in this encounter Care Teams Rv Mechanic Relationship Specialty Start Date End Date Taylor Child MD [address] [place] [phone] PCP - General Family Medicine 04/12/20 documented as of this encounter
--- OUTSIDE RECORDS SUMMARY | 2025-07-13 21:15 | XMS_ITS | Clinical Summary ---
Author Organization [facility] it Address [address] [place] [address] Care Team Providers Care Vegetable Cook Name Role Phone Unavailable Primary Care Provider [...] Smear 10/26/2020 Depression Screening 07/29/2024 COVID-19 Vaccine (1 - 2024-2 6 season) 2025 Influenza Vaccine (#1) 2025 RSV [...]
--- OUTSIDE RECORDS SUMMARY | 2025-07-13 21:15 | XMS_ITS | Clinical Summary ---
Author Organization [employer] Address [address] [facility] 7t [place] [address] Care Team Providers Care Reliability Specialist Name Role Phone Taylor Child MD Primary Care Provider [phone] Allergies No known active allergies Medications Vit-Fe [...] Encounters Date Type Department Care Team Description 07/13/2025 Orders Only GENERIC EXTERNAL DATA DEPARTMENT Provider, Generic External Data 05/17/2025 Results Follow-Up [facility] [address] [place] [address] Nitin Weller CNM Pelvis Transvaginal from Last 3 Months Immunizations Immunization Administration [...] 04/06/2025 11:21 AM EDT Plan of Treatment Upcoming Encounters Date Type Department Care Team (Late st Contact Info) Description 09/06/2025 2:30 PM EST Office Visit [facility] [address] [place] [address] Taylor Child MD [address] [place] [address] Health Maintenance Due Date Last Done Comments Pneumococcal Vaccine: Pediatrics (0 to 5 Years) and At-Risk Patients (6 to 49) Years (1 of 2 - PCV) 10/26/2018 COVID-19 Vaccine (3 - 2024- season) 2025 03/22/2021, 03/01/2021 Influenza Vaccine (#1) 2025 , 09/13/2016, 09/16/2015, Additional history exists SDOH Screening 01/28/2026 01/28/2025 Alcohol/Substance Use Screening 02/08/2026 02/08/2025 Depression Screening 02/08/2026 02/08/2025, 02/09/20 Tobacco Screening 02/23/2026 02/23/2025 Disability Screening 04/06/2026 [...] WO CONTRAST Routine 07/13/2025 7:30 PM EST HCG, TOTAL, QN Routine 07/13/2025 5:26 PM EST COMPREHENSIVE METABOLIC PANEL Routine 07/13/2025 5:26 PM EST CBC WITH AUTO DIFFERENTIAL Routine 07/13/2025 5:26 PM EST URINALYSIS, COMPLETE, WITH REFLEX TO CULTURE Routine 07/13/2025 5:26 PM EST US PELVIS TRANSVAGINAL Routine 2:15 PM EDT Right ovarian cyst PAP SMEAR Routine 04/06/2025 11:30 AM EDT Cervical cancer screening LIPID PANEL, STANDARD Routine 02/23/2025 10:05 AM EDT Class 1 obesity due to excess calories with serious comorbidity and body mass index (BMI) of 34.0 to 34.9 in adult HEPATITIS C ANTIBODY ([place] DPH) Routine 02/23/2025 HIV ANTIBODY/ANTIGEN ([place] D[facility]) Routine 02/23/2025 from Last 3 Months or Most Recently Relevant to Health Maintenance Results * CT Abdomen Pelvis w/o Contrast (07/13/2025 7:30 PM EST) Anatomical Region Laterality Modality Body, Pelvis, Abdomen Computed T omography 07/13/2025 7:30 PM EST Narrative 07/13/2025 7:33 PM EST [address] [address] [address] Scan Report Signed Patient: Loulou Carvalho MR#: [id number] : 2000 Acct:[id number] Age/Sex: 24 / F ADM Date: 07/13/25 Loc: HO.ED Attending Dr: Ordering Physician: Sergey Mijares Date of Service: 07/13/25 Procedure(s): CT abdomen pelvis wo IV con Accession Number(s): [id number] cc: Sergey Mijares; Taylor Child Report Number: [id number]: Total DLP = 566.00 mGy-cm Reason for [...] in OV> 07/13/251930 DD/ 29 TD/TT: 07/13/251929 Dam Operator: Procedure Note Donotuseinterpreter, Image - 07/13/[address] [address] [address] Scan Report Signed Patient: Kalie CarvalhoR#: [id number] : 2000Acct:[id number] Age/Sex: 24 / FADM Date: 07/13/25 Loc: HO.ED Attending Dr: Ordering Physician: Sergey Mijares Date of Service: 07/13/25 Procedure(s): CT abdomen pelvis wo IV con Accession Number(s): [id number] cc: Sergey Mijares; Taylor Child Report Number: [id number]: Total DLP = 566.00 mGy-cm Reason for [...] in OV> 07/13/251930 DD/ 29 TD/TT: 07/13/251929 Dam Operator: [facility] External Provider IMG CT PROCEDURES Edited Result - Final * (ABNORMAL) Urinalysis, Complete, with Reflex to Culture (07/13/2025 5:26 PM EST) Color Urine Yellow [facility] Appearance Urine Cloudy [facility] PH 5.5 5.0 - 9.0 [facility] Glucose Urine UA Negative Negative mg/dL [facility] Urine Blood Negative Negative [facility] Specific [place] - Urine 1.025 1.005 - 1.025 [facility] Urine Protein Trace Neg-Trace mg/dL [facility] Urine Ketones 15 Negative mg/dL [facility] Nitrite Urine Negative Negative [facility] Leukocyte Esterase Urine Moderate (2+)(A) Negative [facility] RBC Urine 0-2 0 - 2 /HPF [facility] Urine WBC 21-50(A) 0 - 5 /HPF [facility] Urine Squamous Epithelial Cell 11-20 0 - 2 /HPF [facility] Urine Bacteria None Seen None Seen [facility] Hyaline Casts, Urine 3-5 0 - 2 /LPF [facility] 07/13/2025 5:26 PM EST 07/13/2025 5:47 PM EST Narrative [facility] - 07/13/2025 6:19 PM EST [id number], Clean Catch us Generic External Data Provider LAB URINE ORDERAB LES Final Result [facility] [address] [place] [phone] * (ABNORMAL) CBC auto differential (07/13/2025 5:26 PM EST) White Blood Count 9.9 4.8 - 10.8 X10*3/uL [facility] Red Blood Count 3.91(L) 4.20 - 5.50 X10*6/uL [facility] Hemoglobin 11.7(L) 12.0 - 16.0 g/dl [facility] Hematocrit 35.9(L) 37.0 - 47.0 % [facility] Mean Corpuscular Volume 91.8 80.0 - 98.0 fL [facility] Mean Corpuscular Hemoglobin 29.9 27.0 - 33.0 pg [facility] Mean Corpuscular HGB Conc 32.6 31.0 - 35.0 g/dl [facility] Red Cell Distribution Width 12.1 11.0 - 16.0 % [facility] Platelet Count 231 160 - 400 X10*3/uL [facility] Mean Platelet Volume 11.4 9.4 - 12.3 fL [facility] Neutrophils Percent Auto 61.4 45 - 73 % [facility] Imm Gran Pct Auto 0.4 0.0 - 0.4 % [facility] Lymphocytes Percent Auto 29.6 20 - 40 % [facility] Monocytes Percent Auto 6.7 2 - 11 % [facility] Eosinophils Percent Auto 1.6 0 - 4 % [facility] Basophils Percent Auto 0.3 0 - 2 % [facility] NRBC Pct Auto 0.0 0.0 - 0.2 /100WBC [facility] Neutrophils Absolute Auto 6.1 2.0 - 8.3 x10*3/uL [facility] Imm Gran Abs Auto 0.04(H) 0.00 - 0.03 X10*3/uL [facility] Lymphocytes Absolute Auto 2.9 1.2 - 4.9 X10*3/uL [facility] Monocytes Absolute Auto 0.7 0.1 - 1.2 X10*3/uL [facility] Eosinophils Absolute Auto 0.2 0.0 - 0.4 X10*3/uL [facility] Basophils Absolute Auto 0.0 0.0 - 0.2 X10*3/uL [facility] NRBC Abs Auto 0.000 0.0 - 0.012 X10*3/uL [facility] 07/13/2025 5:26 PM EST 07/13/2025 5:47 PM EST us Generic External Data Provider LAB BLOOD ORDERAB LES Final Result [facility] [address] [place] [phone] * hCG, Total, Quantitative (07/13/2025 5:26 PM EST) HCG Quantitative <2 mIU/mL [facility] Comment:Weeks post LMP Appro ximate hCG(Last Menstrual Period) Range (mIU/ml)3 - 4 weeks 9 - 1304 - 5 weeks 75 - 2,6005 - 6 weeks 850 - 20,8006 - 7 weeks 4000 - 100,2007 - 12 weeks 11,500 - 289,50531 - 16 weeks 18,300 - 137,57070 - 29 weeks (2nd trimester) 1,400 - 53,07809 - 41 weeks (3rd trimester) 940 - [...] Provider LAB BLOOD ORDERAB LES Final Result [facility] [address] [place] [phone] * Comprehensive Metabolic Panel (07/13/2025 5:26 PM EST) Sodium 138 135 - 145 mmol/L [facility] Potassium 3.5 3.3 - 5.1 mmol/L [facility] Chloride 102 96 - 108 mmol/L [facility] Carbon Dioxide 27 22 - 29 mmol/L [facility] Anion Gap 13 12 - 20 [facility] Urea Nitrogen (BUN) 10 9 - 16 mg/dL [facility] Creatinine, Serum 0.59 0.5 - 1.4 mg/dL [facility] Creatinine Clr Calc Pharmacy 156.2 [facility] Comment:Provided height and weight: 160.02 cm,91.172 kg.eGFR (calculated from the MDRD study equation) and eCrCl(calculated from the Cockcroft-Gault equation) are based ondifferent parameters and may not yield comparable results.If eCrCl result is absurd, please check patient'sheight/weight. Estimated Glomerular Filt Rate >60 [facility] Comment:Chronic Kidney Disea se: Estimated GFR < 60 mL/min/1.96e2Evvggc Kidney Disease: Estimated GFR < 15 mL/min/1.73m2 Glucose 87 60 - 115 mg/dL [facility] Calcium 9.6 8.4 - 10.2 mg/dL [facility] Bilirubin, Total 0.5 0.0 - 1.0 mg/dL [facility] Aspartate Amino Transferase 30 5 - 31 U/L [facility] Alanine Aminotransferase 21 0 - 31 U/L [facility] Total Protein 8.0 6.5 - 8.0 g/dL [facility] Albumin Level 4.7 3.5 - 5.0 g/dL [facility] Alkaline Phosphatase 107 39 - 117 U/L [facility] 07/13/2025 5:26 PM EST 07/13/2025 5:47 PM EST us Generic External Data Provider LAB BLOOD ORDERAB LES Final Result Performing Organization Address City/State/[facility] Co de Phone Number [facility] [address] [place] [phone] * US Pelvis Transvaginal (05/17/2025 2:15 PM EDT) Anatomical Region Laterality Modality Pelvis Ultrasound 05/17/2025 2:15 PM EDT Narrative 05/17/2025 2:56 PM EDT [address] [address] Ultrasound Report Signed Patient: Loulou Carvalho MR#: [id number] : 2000 Acct:[id number] Age/Sex: 24 / F ADM Date: 05/17/25 Loc: HO.US Attending Dr: Nitin Weller CNM Ordering Physician: NITIN WELLER CNM Date of Service: 05/17/25 Procedure(s): US pelvic and transvaginal Accession Number(s): [id number] cc: Taylor Child; NITIN WELLER CNM Reason [...] 05/17/2025 02:53 PM EDT Dictated By: Parmjit Benaviedz MD Signed By: <Electronically signed by Parmjit Nava MD in OV> 05/17/25 1453 DD/ 1415 TD/TT: 05/17/25 1440 Dam Operator: Procedure Note Donotuseinterpreter, Image - 05/17/2025 [place] [address] Ultrasound Report Signed Patient: Chuck Carvalho#: [id number] : 2000Acct:[id number] Age/Sex: 24 / FADM Date: 05/17/25 Loc: HO.US Attending Dr: Nitin Weller CNM Ordering Physician: NITIN WELLER CNM Date of Service: 05/17/25 Procedure(s): US pelvic and transvaginal Accession Number(s): [id number] cc: Taylor Child; NITIN WELLER CNM Reason [...] 05/17/25 1453 DD/ 1415 TD/TT: 05/17/25 1440 Dam Operator: us Nitin Weller CNM [facility] [place] PROCEDURES Edited Result - Final * Pap Smear (04/06/2025 11:30 AM EDT) Swab Cervix uteri structure / Unknown 04/06/2025 11:30 AM EDT 04/07/2025 11:19 AM EDT [facility] - 04/12/2025 1:47 PM EDT ----- ------- Name: Loulou Carvalho Age/Sex: 24/F : 2000 Unit#: [id number] Attend Dr: NITIN WELLER CNM Re04/07/25 Status: [facility] REF Location: [facility] Disch: ----- ------- SPEC : [id number] RECD: 04/07/25-111 STATUS: APOLONIA AGUILERA NUM: [id number] JUSTIN: 04/06/25-[address]: NITIN WELLER CNM ENTERED: 04/07/25-1225 SP TYPE: Pap Smr OT DR: ORDERED: Pap Smear Interpretation Satisfactory for [...] and HPV testing will be performed at [facility] ([facility] #[id number]), [address] [place] [address]. Testing for HPV was performed using the [employer] STEPHANIE 6800 system. The presence of HPV in the [...] detected. All professional services are performed by [facility] ([address] [place] [phone]; ; [place] #[id number]). The PAP Test is a screening procedure with the inherent possibility of both false negative and false positive results. Results should be interpreted in the context of historic and current clinical findings. Reliability of the PAP Test is enhanced by performing the test on a regular repetitive basis. ----- ------- Signed (signature on file) GUSTAVO Cullen ([facility]) 04/12/25 1347 ----- ------- END OF REPORT Nitin Weller [facility] CYTOLOGY ORDERABLES F inal Result [facility] [address] [place] [phone] * (ABNORMAL) Lipid Panel, Standard (02/23/2025 10:05 AM EDT) Triglycerides 132 <150 mg/dL [facility] Comment:Desirable Triglyceri de: less than 150 mg/dLBorderline High Triglyceride 150-199 mg/dLHigh Triglyceride: 200-499 mg/dLVery High Triglyceride: greater than or equal to 5OO mg/dL Cholesterol 195 <200 mg/dL [facility] Comment:Desirable Cholestero l: less than 200 mg/dLBorderline High Cholesterol: 200-239 mg/dLHigh Cholesterol: greater than 239 mg/dL LDL Cholesterol Calculated 135(H) <100 mg/dL [facility] Comment:Desirable LDL: less than 100 mg/dLNear Optimal/Above Optimal LDL: 110- 129 mg/dLBorderline High LDL: 130-159 mg/dLHigh LDL: 160-189 mg/dLVery High LDL: greater than or equal to 190 mg/dL HDL Cholesterol 34(L) >40 mg/dL [facility] Comment:Desirable HDL: great er than 40 mg/dL Note: This HDL assay may give artificially low results in patients with liver disease. Blood Venous blood specimen / Unknown 02/23/2025 10:05 AM EDT 02/23/2025 11:08 AM EDT Taylor Child MD LAB BLOOD ORDERABLES Final Res ult [facility] [address] [place] [phone] * Hepatitis C Antibody ([facility]) (02/23/2025) Hepatitis C Ab Nonreactive Blood 02/23/2025 Historical Provider LAB BLOOD ORDERABLES Nury l Result * HIV Ab/Ag ([facility]) (02/23/2025) HIV Ag/Ab Nonreactive Blood 02/23/2025 Historical Provider LAB BLOOD ORDERABLES Nury l Result from Last 3 Months or Most Recently Relevant to Health Maintenance Insurance * Guarantor: Loulou Carvalho Account Type Relation to Patient Date of Phone Billing Address Personal/Family Self 2000 [address] [facility] [address] [place], [place] [phone] [place] [address] [employer] [employer] [address] [address] [employer] [address] [address] [employer] [address] [address] Care Teams Reliability Specialist Relationship Specialty Start Date End Date Taylor Child MD [address] [place] [phone] PCP - General Family Medicine 04/12/20
--- OUTSIDE RECORDS SUMMARY | 2025-07-13 21:15 | XMS_ITS | Encounter Summary ---
Author Organization [employer] Address [address] [facility] 7 [place] [address] Care Team Providers Care Asbestos Siding Mechanic Name Role Phone Taylor Child MD Primary Care Provider [phone] Reason for Visit * Reason Onset Date Comments triage 11/01/2022 Encounter Details Date Type Department Care Team ([facility] st Contact Info) Description 11/01/2022 Telephone [facility] [address] [place], [place] [phone] Taylor Child MD [address] [place] [address] triage Social History Tobacco Use Types Packs/Day [...] 11/01/2022 11:17 AM EDT Triage call with Kaybus Boot Repairer [place] [id number] Pt reports vaginal discharge which started last [...] a vaginal yeast infection (i.e., white, thick, putyikb-lervsi-evea, itchy, not bad smelling discharge) * All [...] occur - You become worse Vaginal Discharge (Polish) handout sent to [phone] * Telephone Encounter - Josee Johnson - 11/01/2022 10:43 AM EDT Symptom: Vaginal Symptoms - Not Bleeding Outcome: Schedule an urgent appointment (within 4 hours) or talk to a nurse or provider soon Reason: Foul-smelling vaginal discharge The caller accepted this outcome documented in this encounter Plan of Treatment Upcoming Encounters Date Type Department Care Team (Late st Contact Info) Description 09/06/2025 2:30 PM EST Office Visit [facility] [address] [place] [address] Taylor Child MD [address] [place] [address] documented as of this encounter Visit Diagnoses Not on filedocumented in this encounter Care Teams Asbestos Siding Mechanic Relationship Specialty Start Date End Date Taylor Child MD [address] [place] [address] PCP - General Family Medicine 04/12/20 documented as of this encounter
[2025-07-13 21:35] VITALS: BP 117/78; PULSE 110; RESP 16; TEMP 36.8; O2SAT 98
[2025-07-14 00:11] VITALS: BP 96/55; PULSE 108; RESP 16; TEMP 36.5; O2SAT 97
== END 2025-07-13 23:58 | disposition home or self-care (01) ==
PROVIDERS: Physician Assistant; Emergency Provider Emergency Medicine; PCP General Practice
DX: N20.0 Calculus of kidney (principal); N30.00 Acute cystitis without hematuria; R16.0 Hepatomegaly, not elsewhere classified; R11.0 Nausea; J45.909 Unspecified asthma, uncomplicated
CPT/HCPCS: 36415; 74176; 80053; 81001; 84702; 85025; 87086; 96374; 96375; 99284; J0696; J1885; J2405

== ENCOUNTER → 2025-07-13 18:35 | Outpatient (BNV) | payer MEDICAID, SELFPAY | PROVIDERS: PCP General Practice; Visit Provider Radiology Diagnostic Radiology | DX: N20.0 Calculus of kidney (principal); K44.9 Diaphragmatic hernia without obstruction or gangrene; R16.0 Hepatomegaly, not elsewhere classified | CPT/HCPCS: 74176 ==